=== PATIENT | female | born 1955 | race African-American/Black ===

== ENCOUNTER 2017-06-24 09:19 | Day surgery (SDC) | payer OTHER ==
--- NOTE | 2017-06-24 10:11 | HP ---
Satellite [facility] - Chief Complaint Chief Complaint: right hand pain/numbness - Past Medical History Allergies/Adverse Reactions: Allergies Allergy/AdvReac Type Severity Reaction Status Date / Time No Known Allergies Allergy Verified 11/01/14 11:30 Cardiovascular: Yes: HTN, Hyperlipdemia - Current Medications Current Medications: Home Medications Medication Instructions Recorded Acetaminophen [Tylenol] 650 mg PO PRN PRN 11/01/14 Amlodipine Besylate 10 mg PO DAILY 11/01/14 Atenolol [Tenormin -] 50 mg PO DAILY 11/01/14 Atorvastatin Calcium 40 mg PO DAILY 11/01/14 Cholecalciferol (Vitamin D3) 1,000 unit PO DAILY 11/01/14 [Vitamin D3] Hydrochlorothiazide [Hctz -] 12.5 mg PO DAILY 11/01/14 Ciprofloxacin [Cipro -] 250 mg PO BID #10 tablet 11/03/14 Hydrocodone/Acetaminophen [Placedo 1 each PO Q6H PRN #20 tablet MDD 4 06/24/17 5-325 Tablet] Satellite Physical Exam - Physical Examination Vital Signs: Vital Signs Period Temp Pulse Resp BP Sys/Koehler Pulse Ox Last 24 Hr 98.9 F 61 18 128/73 99 General Appearance: Well Nourished, Well Developed, Alert & Oriented x3 ENT: Clear Lung: Normal air movement Heart: Regular rate & rhythm Extremities: Other (right hand- + phalens, + tinels emg + cts) Neurological: Intact, Alert, Oriented Satellite Impression/Plan - Impression/Plan Impression: right cts Operative Procedure: right ctr Date to be Performed: 06/24/17
[2017-06-24 10:12] VITALS: BMI 35.5
[2017-06-24] MEDS ORDERED: MIDAZOLAM HCL 2 MG/2 ML SINGLE DOSE VIAL ONE ×2 (10:51→12:09)
[2017-06-24] MEDS ORDERED: PROPOFOL 20 ML ONE (10:51)
[2017-06-24] MEDS ORDERED: ceFAZolin SODIUM 1 GM VIAL ONE (10:53)
[2017-06-24] MEDS ORDERED: ONDANSETRON 4 MG/2 ML VIAL IVPUSH PRN (11:05)
[2017-06-24] MEDS ORDERED: oxyCODONE HCL 5 MG TABLET PO PRN ×2 (11:05)
[2017-06-24] MEDS ORDERED: LACTATED RINGERS SOLUTION 1,000 ML IV SCH (11:15)
[2017-06-24] MEDS ORDERED: ceFAZolin SODIUM 1 GM VIAL IVPB ONE (12:07)
[2017-06-24] MEDS ORDERED: VERAPAMIL HCL 5 MG/2 ML VIAL IVPUSH ONE (12:09)
[2017-06-24] MEDS ORDERED: LIDOCAINE HCL 1%, 10 MG/ML (20ML VIAL) NR ONE (12:25)
[2017-06-24] MEDS ORDERED: BUPIVACAINE HCL/PF (5 MG/ML) 30 ML VIAL IJ ONE (12:25)
[2017-06-24] MEDS ORDERED: oxyCODONE HCL 5 MG TABLET ONE (13:23)
[2017-06-24 13:32] VITALS: TEMP 98.2
[2017-06-24 14:22] VITALS: BP 127/64; PULSE 60
--- NOTE | 2017-06-24 14:58 | OP ---
Operative Note - Note: Operative Date: 06/24/17 Pre-Operative Diagnosis: left CTS Operation: left CTR, tenosynovium Post-Operative Diagnosis: Same as Pre-op Surgeon: Dipesh No Anesthesiologist/TRICOT KNITTING MACHINE OPERATOR: Dallas Gustafson Anesthesia: Local, MAC Specimens Removed: tenosynovium Estimated Blood Loss (mls): 0 Drains, Volume Out (mls): 0 Blood Volume Replaced (mls): 0 Fluid Volume Replaced (mls): 500 Operative Report Dictated: Yes
--- NOTE | 2017-06-24 15:33 | SPEC ---
DATE OF OPERATION: 06/24/2017 PREOPERATIVE DIAGNOSIS: Left carpal tunnel syndrome and tenosynovitis. POSTOPERATIVE DIAGNOSIS: Left carpal tunnel syndrome and tenosynovitis. PROCEDURE: Left carpal tunnel release and tenosynovectomy. SURGEON: Dipesh No MD ASSISTANTS: None. ANESTHESIOLOGIST: . SPECIMEN: Tenosynovium. BLOOD LOSS: None. BLOOD GIVEN: None. FLUID REPLACEMENT: 500 mL. DRAINS: None. COMPLICATIONS: None. INDICATIONS: The patient is a 62-year-old female with a preoperative diagnosis of severe recurrent left carpal tunnel syndrome. After understanding the potential risks, complications, alternatives and benefits for surgery versus nonsurgical treatment, the patient elected to undergo this procedure. DESCRIPTION OF PROCEDURE: The patient was brought to the operating room, peripheral IV placed and intravenous sedation was given. One gram of intravenous Ancef was given. MAC anesthesia was induced. A tourniquet was applied to the left upper arm and the left upper extremity was prepped and draped in sterile fashion. The entire case was done under 3.8 loupe magnification. A marking pen was utilized to vincent out a longitudinal incision in an already existing skin crease. Twenty mL of 0.5% Marcaine mixed with 1% Lidocaine was injected in and around the surgical incision. The left upper extremity was elevated, exsanguinated with an Esmarch bandage and the tourniquet inflated to 250 mmHg. A No. 15 scalpel blade was utilized to cut down through the skin. Subcutaneous hemostasis was achieved with the bipolar cautery. Dissection was done through the superficial palmar fascia. Self-retaining retractors were placed into the wound. Under direct visualization, the transverse carpal ligament was transected with a No. 15 scalpel blade, exposing the median nerve and the contents of the carpal tunnel. The distal and proximal extents of the release were completed with a Littler scissor and checked with irrigation and my small finger. They were seen to be complete. Limited dissection was done on the radial side of the median nerve and more extensive dissection was done on the ulnar side of the median nerve. The patients nerve was seen to be quite compressed by epineurium and therefore a limited epineurotomy was performed. A Ragnell retractor was used to gently retract the median nerve in a radial direction. The patient had a lot of tenosynovitis and therefore a tenosynovectomy was performed off all 9 flexor tendons. This was passed off the field as tenosynovium left wrist. The floor of the carpal tunnel was checked. There were no abnormal masses or ganglion cysts. The area was copiously irrigated and washed out and closure begun. Undyed 4-0 Vicryl was used to close the deep dermal layer. Final skin reapproximation was done with horizontal mattress 4-0 nylon sutures. The area was then washed and dried, covered with Xeroform, 4x4s, fluffs between the fingers, Webril and a 4-inch plaster roll was utilized to make a volar splint, which was then wrapped with Afsaneh and Coban. The tourniquet was taken down after a total tourniquet time of 18 minutes. There were no complications during the case. The patient tolerated the procedure well and was brought to the ambulatory recovery room in stable condition. Eliseo [id number]
--- NOTE | 2017-06-25 16:07 | PATH ---
Surgical Pathology Report Patient Name: CYNTHIA WALTON [facility]. Rec. #: [id number] /Age/Gender: 1955 (Age: 62) / F Account: [id number] Location: [facility] SURGICAL Taken: 06/24/2017 Received: 06/24/2017 Reported: 06/25/2017 Physicians: Dipesh No M.D. Specimen(s) Received TENOSYNOVIUM Clinical History Left carpal tunnel syndrome Final Diagnosis TENOSYNOVIUM, EXCISION: TENOSYNOVIAL TISSUE WITH FIBROSIS. Electronically Signed Alissa Pettit M.D. Gross Description Received in formalin labeled "tenosynovium," is a 2.0 x 1.9 x 0.3 cm aggregate of disla-yellow, irregular portions of soft tissue, consistent with tenosynovium. The specimen is entirely submitted in one cassette. /06/24/2017 saudi06/24/2017
== END 2017-06-24 14:29 | disposition home or self-care (01) ==
LOC: JASU-SURG 09:19
PROVIDERS: ATTEND Orthopaedic Surgery
PROC: 0LB60ZZ Excision of Left Lower Arm and Wrist Tendon, Open Approach (ICD-10-PCS; 2017-06-24)
PROC: 01N50ZZ Release Median Nerve, Open Approach (ICD-10-PCS; principal; 2017-06-24 11:00)
DX: G56.02 Carpal tunnel syndrome, left upper limb (principal); M65.842 Other synovitis and tenosynovitis, left hand; I10 Essential (primary) hypertension; E78.5 Hyperlipidemia, unspecified
CPT/HCPCS: 88304-TC; 94760

== ENCOUNTER 2017-08-05 09:19 | Day surgery (SDC) | payer OTHER ==
[2017-08-04 09:42] VITALS: BMI 35.0
--- NOTE | 2017-08-05 08:55 | HP ---
[facility] - Chief Complaint Chief Complaint: right hand pain/numbness - Past Medical History Allergies/Adverse Reactions: Allergies Allergy/AdvReac Type Severity Reaction Status Date / Time adhesive tape Allergy Severe Rash Verified 08/04/17 10:19 ekg leads glue Allergy "bumps on Uncoded 08/04/17 10:19 skin" Cardiovascular: Yes: HTN, Hyperlipdemia - Current Medications Current Medications: Home Medications Medication Instructions Recorded Amlodipine Besylate 10 mg PO DAILY 11/01/14 Atenolol [Tenormin -] 50 mg PO DAILY 11/01/14 Atorvastatin Calcium 40 mg PO DAILY 11/01/14 Cholecalciferol (Vitamin D3) 1,000 unit PO DAILY 11/01/14 [Vitamin D3] Hydrochlorothiazide [Hctz -] 12.5 mg PO DAILY 11/01/14 Naproxen Sod/Diphenhydramine 1 each PO PRN PRN 08/04/17 [Aleve Pm Caplet] Hydrocodone/Acetaminophen [Simpson 1 each PO Q6H PRN #20 tablet MDD 4 08/05/17 5-325 Tablet] Satellite Physical Exam - Physical Examination General Appearance: Well Nourished, Well Developed, Alert & Oriented x3 ENT: Clear Lung: Normal air movement Heart: Regular rate & rhythm Extremities: Other (right hand- + tinels, + phalens EMG + cts) Neurological: Intact, Alert, Oriented Satellite Impression/Plan - Impression/Plan Impression: right cts Operative Procedure: right ctr Date to be Performed: 08/05/17
[2017-08-05] MEDS ORDERED: BUPIVACAINE HCL/PF (5 MG/ML) 30 ML VIAL IJ ONE (10:13)
[2017-08-05] MEDS ORDERED: LIDOCAINE HCL 1%, 10 MG/ML (20ML VIAL) NR ONE (10:13)
[2017-08-05] MEDS ORDERED: MIDAZOLAM HCL 2 MG/2 ML SINGLE DOSE VIAL ONE (11:16)
--- NOTE | 2017-08-05 11:30 | OP ---
Operative Note - Note: Operative Date: 08/05/17 ([facility]) Pre-Operative Diagnosis: right cts Operation: right ctr Post-Operative Diagnosis: Same as Pre-op Surgeon: Dipesh No Anesthesiologist/CIRCUIT WALKER: Fabiano Palomino Anesthesia: Local, MAC Specimens Removed: tenosynovium Estimated Blood Loss (mls): 0 (tourniquet) Operative Report Dictated: Yes
[2017-08-05] MEDS ORDERED: oxyCODONE HCL 5 MG TABLET PO PRN (11:56)
[2017-08-05] MEDS ORDERED: ONDANSETRON 4 MG/2 ML VIAL IVPUSH PRN (11:56)
[2017-08-05] MEDS ORDERED: LACTATED RINGERS SOLUTION 1,000 ML IV SCH (12:00)
[2017-08-05] MEDS ORDERED: LIDOCAINE HCL 1%, 10 MG/ML (20ML VIAL) ONE (12:02)
[2017-08-05] MEDS ORDERED: BUPIVACAINE HCL/PF 0.5% (5MG/ML) 10 ML VIAL ONE (12:03)
[2017-08-05] MEDS ORDERED: PROPOFOL 20 ML ONE ×3 (12:23)
--- NOTE | 2017-08-05 13:27 | SPEC ---
DATE OF OPERATION: 08/05/2017 PREOPERATIVE DIAGNOSIS: Right carpal tunnel syndrome. POSTOPERATIVE DIAGNOSIS: Right carpal tunnel syndrome. OPERATION: Right carpal tunnel release and tenosynovectomy. SURGEON: Dipesh No M.D. ASSISTANTS: None. ANESTHESIA: MAC; 10 mL of 0.5% Marcaine and 1% lidocaine mix. ANESTHESIOLOGIST: , COOKER SYRUP DRAINS: None. COMPLICATIONS: None. SPECIMENS: Tenosynovium, right wrist. BLOOD LOSS: None. BLOOD GIVEN: None. FLUID REPLACEMENT: 500 mL. INDICATIONS: This patient is a 62-year-old female with a preoperative diagnosis of right carpal tunnel syndrome. After understanding the potential risks, complications, alternatives and benefits of surgery versus nonsurgical treatment, the patient elected to undergo this procedure. DESCRIPTION OF PROCEDURE: The patient was brought to the operating room, peripheral IV placed, and intravenous sedation was given. One gram of intravenous Ancef was given. MAC anesthesia was induced. A tourniquet was applied to the right upper arm and the right upper extremity was prepped and draped in sterile fashion. The entire case was done under 3.8-loupe magnification. A marking pen was utilized to vincent out a longitudinal incision in an already existing skin crease. Twenty mL of 0.5% Marcaine mixed with 1% lidocaine was injected in and around the surgical incision. The right upper extremity was elevated, exsanguinated with an Esmarch bandage, and the tourniquet inflated to 250 mmHg. A No. 15-scalpel blade was utilized to cut down through the skin. Subcutaneous hemostasis was achieved with the bipolar cautery. Dissection was done through the superficial palmar fascia. Self-retaining retractors were placed into the wound. Under direct visualization, the transverse carpal ligament was transected with a No. 15-scalpel blade, exposing the median nerve and the contents of the carpal tunnel. The distal and proximal extents of the release were completed with a Littler scissors and checked with irrigation and my small finger. They were seen to be complete. Limited dissection was done on the radial side of the median nerve and more extensive dissection was done on the ulnar side of the median nerve. The patients nerve was seen to be quite compressed by epineurium and therefore a limited epineurotomy was performed. A Ragnell retractor was used to gently retract the median nerve in a radial direction. The patient had a lot of tenosynovitis and therefore a tenosynovectomy was performed off all 9 flexor tendons. This was passed off the field as tenosynovium right wrist. The floor of the carpal tunnel was checked. There were no abnormal masses or ganglion cysts. The area was copiously irrigated and washed out and closure begun. Undyed 4-0 Vicryl was used to close the deep dermal layer. Final skin reapproximation was done with horizontal mattress 4-0 nylon sutures. The area was then washed and dried, covered with Xeroform, 4 x 4's, fluffs between the fingers, Webril and a 4-inch plaster roll was utilized to make a volar splint, which was then wrapped with Afsaneh and Coban. The tourniquet was taken down after a total tourniquet time of 22 minutes. There were no complications during the case. The patient tolerated the procedure well and was brought to the ambulatory recovery room in stable condition. Eliseo [id number]
[2017-08-05 14:03] VITALS: BP 115/67; PULSE 57
[2017-08-05 16:12] VITALS: TEMP 98.4
--- NOTE | 2017-08-07 17:27 | PATH ---
Surgical Pathology Report Patient Name: CYNTHIA WALTON [facility]. Rec. #: [id number] /Age/Gender: 1955 (Age: 62) / F Account: [id number] Location: [facility] SURGICAL Taken: 08/05/2017 Received: 08/05/2017 Reported: 08/07/2017 Physicians: Dipesh No M.D. Specimen(s) Received TENOSYNOVIAL TISSUE Clinical History Carpal tunnel syndrome right side Final Diagnosis TENOSYNOVIAL TISSUE RIGHT SIDE, BIOPSY: SYNOVIAL TISSUE AND FIBROCONNECTIVE TISSUE WITH FOCAL FIBROSIS. Electronically Signed Alissa Pettit M.D. Gross Description Received in formalin labeled "tenosynovial tissue right side," is a 1.4 x 1.3 x 0.3 cm aggregate of disla-yellow portions of soft tissue, consistent with tenosynovium. The specimen is entirely submitted in one cassette. 08/06/2017 saudi08/06/2017
== END 2017-08-05 14:12 | disposition home or self-care (01) ==
LOC: JASU-SURG 09:19
PROVIDERS: ATTEND Orthopaedic Surgery
PROC: 01N50ZZ Release Median Nerve, Open Approach (ICD-10-PCS; principal; 2017-08-05 11:00)
DX: G56.01 Carpal tunnel syndrome, right upper limb (principal)

== ENCOUNTER 2018-03-17 08:18 | Emergency (ER) | payer OTHER ==
[2018-03-17 08:30] VITALS: TEMP 98.7; BMI 34.1
--- NOTE | 2018-03-17 09:17 | PDOC ---
History of Present Illness - General History Source: Patient Exam Limitations: No Limitations - History of Present Illness Initial Comments: 03/17/18 09:47 The patient is a 62 year old female, with a significant past medical history of hypertension and hyperlipidemia, who presents to the emergency department with persistent cough, generalized weakness, fatigue, fevers, chills, diaphoresis, poor appetite and nonbloody diarrhea since starting a Z-Pack on 03/12/18 when she was clinically diagnosed by her PCP, Dr. Saini, with pneumonia. She states her cough is productive of clear, thick white sputum, however, states the amount of sputum has decreased since completing her Zpack yesterday. She states she had been experiencing lightheadedness and profuse sweating with light activity for most of January and February which has persisted until now. She reports becoming drenched in sweat with just transitioning positions. She states she had a fever of 105F on 03/12/18 when she was diagnosed with pneumonia and denies recording her temperatures since, however, reports chills now. She states she feels tired and feel as if she has not really improved after her Abx course. She denies recent sick contacts. The patient denies chest pain, headache and dizziness. The patient denies nausea , vomit, and constipation. The patient denies dysuria, frequency, urgency and hematuria. Allergies: NKDA Past surgical history: orthopedic surgeries Social history: everyday smoker, no smoking in past week PCP - Dr. Saini at [facility] <Henrietta Carlton - Last Filed: 03/17/18 09:47> <Candido Richard - Last Filed: 03/17/18 15:01> - General Chief Complaint: Respiratory Stated Complaint: WEAKNESS Time Seen by Provider: 03/17/18 09:17 Past History <Henrietta Carlton - Last Filed: 03/17/18 09:47> - Past Medical History Anemia: No Asthma: Yes ("years ago") Cancer: No Cardiac Disorders: No CVA: No COPD: No CHF: No Dementia: No Diabetes: No GI Disorders: No Disorders: No HTN: Yes Hypercholesterolemia: Yes Liver Disease: No Psychiatric Problems: No Seizures: No Thyroid Disease: No - Surgical History Abdominal Surgery: No Appendectomy: No Cardiac Surgery: No Cholecystectomy: No Lung Surgery: No Neurologic Surgery: No Orthopedic Surgery: Yes (BILAT KNEE REPLACEMENTS;RT ANKLE SX;LEFT FOOT SX;RT HIP REPLACEMENT) - Immunization History Immunization Up to Date: Yes - Suicide/Smoking/Psychosocial Hx Smoking History: Current every day smoker Have you smoked in the past 12 months: Yes Number of Cigarettes Smoked Daily: 20 Information on smoking cessation initiated: No 'Breaking Loose' booklet given: 08/05/17 Hx Alcohol Use: No Drug/Substance Use Hx: No Substance Use Type: Alcohol Hx Substance Use Treatment: No <Candido Richard - Last Filed: 03/17/18 15:01> - Past Medical History Allergies/Adverse Reactions: Allergies Allergy/AdvReac Type Severity Reaction Status Date / Time adhesive tape Allergy Severe Rash Verified 03/17/18 08:25 ekg leads glue Allergy "bumps on Uncoded 03/17/18 08:25 skin" Home Medications: Ambulatory Orders Amlodipine Besylate 10 mg PO DAILY 11/01/14 Atenolol [Tenormin -] 50 mg PO DAILY 11/01/14 Atorvastatin Calcium 40 mg PO DAILY 11/01/14 Cholecalciferol (Vitamin D3) [Vitamin D3] 1,000 unit PO DAILY 11/01/14 Hydrochlorothiazide [Hctz -] 12.5 mg PO DAILY 11/01/14 Hydrocodone/Acetaminophen [Vulcan 5-325 Tablet] 1 each PO Q6H PRN #20 tablet MDD 4 08/05/17 Albuterol Sulfate Inhaler - [Ventolin HFA Inhaler -] 1 - 2 inh PO Q4H #1 inhaler 03/17/18 predniSONE [Deltasone -] 60 mg PO DAILY #15 tablet 03/17/18 Review of Systems - Review of Systems Able to Perform ROS?: Yes Comments:: 03/17/18 09:49 CONSTITUTIONAL: (+) fever, chills, fatigue, decreased appetite EYES: No visual changes ENT: No ear pain, no sore throat CARDIOVASCULAR: (+) lightheaded, diaphoresis. No chest pain, no palpitations RESPIRATORY: (+) cough, SOB GI: (+) diarrhea. No abdominal pain, no nausea, no vomiting, no constipation, GENITOURINARY: No dysuria, no frequency, no hematuria MUSKULOSKELETAL: No backpain, no joint pain, no myalgias SKIN: No rash NEURO: No headache <Henrietta Carlton - Last Filed: 03/17/18 09:47> *Physical Exam - Vital Signs Last Vital Signs Temp Pulse Resp BP Pulse Ox 98.7 F 66 18 131/81 99 03/17/18 08:25 03/17/18 08:25 03/17/18 08:25 03/17/18 08:25 03/17/18 08:25 - Physical Exam Comments: 03/17/18 09:49 CONSTITUTIONAL: Well-appearing; well-nourished; in no apparent distress HEAD: Normocephalic; atraumatic EYES: PERRL; EOM intact ENMT: External appears normal; normal oropharynx NECK: Supple; non-tender; no cervical lymphadenopathy CARD: Normal S1, S2; no murmurs, rubs, or gallops RESP: (+) Diffuse inspiratory and expiratory wheezing. Normal chest excursion with respiration; no rhonchi, or rales ABD: Soft, non-distended; non-tender; no palpable organomegaly, no palpable hernias EXT: Normal ROM in all four extremities; non-tender to palpation; distal pulses intact SKIN: Warm, dry, no rash NEURO: No focal neurological deficiencies. <Henrietta Carlton - Last Filed: 03/17/18 09:47> - Vital Signs Last Vital Signs Temp Pulse Resp BP Pulse Ox 98.7 F 66 18 131/81 99 03/17/18 08:25 03/17/18 08:25 03/17/18 08:25 03/17/18 08:25 03/17/18 08:25 <Candido Richard - Last Filed: 03/17/18 15:01> Moderate Sedation - Procedure Monitoring Vital Signs: Procedure Monitoring Vital Signs Temperature 98.7 F 03/17/18 08:25 Pulse Rate 66 03/17/18 08:25 Respiratory Rate 18 03/17/18 08:25 Blood Pressure 131/81 03/17/18 08:25 O2 Sat by Pulse Oximetry (%) 99 03/17/18 08:25 <Henrietta Carlton - Last Filed: 03/17/18 09:47> - Procedure Monitoring Vital Signs: Procedure Monitoring Vital Signs Temperature 98.7 F 03/17/18 08:25 Pulse Rate 66 03/17/18 08:25 Respiratory Rate 18 03/17/18 08:25 Blood Pressure 131/81 03/17/18 08:25 O2 Sat by Pulse Oximetry (%) 99 03/17/18 08:25 <Candido Richard - Last Filed: 03/17/18 15:01> ED Treatment Course - LABORATORY CBC & Chemistry Diagram: 03/17/18 09:30 03/17/18 09:30 <Candido Richard - Last Filed: 03/17/18 15:01> Medical Decision Making - Medical Decision Making 03/17/18 11:57 62-year-old female with history of hypertension, history of prolonged smoking presents to the ER with persistent shortness of breath with productive cough which has not responded to treatment with by mouth Zithromax. Patient also complaining of dizziness and lightheadedness. In the ED, patient is awake and alert, nontoxic appearing, with oxygen saturation ranging between 90-95% depending on the patient's positioning. Diffuse wheezing was appreciated in all lung massey. Patient received continuous nebulizer therapy with Atrovent and albuterol. Chest x-ray reveals no evidence of cardiomegaly, flattened hemidiaphragms are identified as well as hyperaeration. CBC/CMP within normal limit. Elevated sodium bicarbonate is noted. I suspect acute COPD exacerbation. We'll administer prednisone by mouth as well as additional nebulizers. Will reassess. 03/17/18 14:59 Patient ate a meal. Lung evaluation reveals no adventitious sounds. Patient able to ambulate without becoming dyspneic. Oxygen saturation post exertion is noted to be 96% on room air. Will discharge. <Candido Richard - Last Filed: 03/17/18 15:01> *DC/Admit/Observation/Transfer - Attestations Scribe Attestion: 03/17/18 09:50 Documentation prepared by Henrietta Carlton, acting as medical auditor for Candido Richard MD <Henrietta Carlton - Last Filed: 03/17/18 09:47> <Candido Richard - Last Filed: 03/17/18 15:01> Diagnosis at time of Disposition: Acute exacerbation of chronic obstructive pulmonary disease (COPD) - Discharge Dispostion Disposition: HOME Condition at time of disposition: Stable - Referrals Referrals: Adama Saini MD [Primary Care Provider] - - Patient Instructions Printed Discharge Instructions: DI for Acute Bronchitis - Post Discharge Activity
[2018-03-17] MEDS ORDERED: ALBUTEROL SO4 2.5/IPRATROPIUM 0.5 INH SOL 3 ML VIAL.NEB. NEB ONE ×4 (09:41→12:09)
[2018-03-17 10:29] LABS: INR 1.07 (0.83-1.09); PROTHROMBIN TIME (PATIENT) 12.6 SEC (9.7-13.0)
[2018-03-17 10:33] LABS: URINE APPEARANCE SLCLOUDY; URINE BILIRUBIN NEGATIVE (<2.0 mg/dL); URINE COLOR DKYELLOW; URINE GLUCOSE (UA) NEGATIVE (NEGATIVE); URINE KETONE TRACE (NEGATIVE); URINE LEUK ESTERASE TRACE (NEGATIVE); URINE NITRITE NEGATIVE (NEGATIVE); URINE PROTEIN 1+ (NEGATIVE)
[2018-03-17 10:42] LABS: BASO % 0.3 % (0-2.0); HEMATOCRIT 37.3 % (32.4-45.2); HEMOGLOBIN 12.8 GM/dL (10.7-15.3); LYMPH % 45.9 % (8-40); MCH 30.2 pg (25.7-33.7); MCHC 34.3 g/dl (32.0-36.0); MEAN CELL VOLUME 87.8 fl (80-96); MEAN PLT VOLUME 9.1 fl (7.5-11.1); MONO % 8.7 % (3.8-10.2); NEUT % 43.1 % (42.8-82.8); PLATELET COUNT 275 K/MM3 (134-434); RBC 4.25 M/mm3 (3.60-5.2); RDW 16.6 % (11.6-15.6); WHITE BLOOD COUNT 6.2 K/mm3 (4.0-10.0)
[2018-03-17 10:49] LABS: EPI CELLS MODERATE /HPF (FEW); URINE HYALINE CAST 27 /lpf; URINE MUCUS FEW
[2018-03-17 10:53] LABS: ALBUMIN 4.2 g/dl (3.4-5.0); ALK PHOS 81 U/L (45-117); ANION GAP 7 MMOL/L (8-16); BILIRUBIN,TOTAL 0.7 mg/dL (0.2-1); BLOOD UREA NITROGEN 16 mg/dL (7-18); CALCIUM 9.4 mg/dL (8.5-10.1); CHLORIDE 100 mmol/L (98-107); CO2 34 mmol/L (21-32); CREATININE 1.1 mg/dL (0.55-1.3); GLUCOSE,RANDOM 101 mg/dL (74-106); POTASSIUM 3.4 mmol/L (3.5-5.1); SGOT/AST 21 U/L (15-37); SGPT/ALT 23 U/L (13-61); SODIUM 140 mmol/L (136-145); TOT PROT 7.9 g/dl (6.4-8.2)
[2018-03-17] MEDS ORDERED: predniSONE 20 MG TABLET (UD) PO ONE (11:52)
[2018-03-17] MEDS ORDERED: predniSONE 20 MG TABLET (UD) ONE (12:09)
[2018-03-17 12:19] VITALS: BP 117/65; PULSE 80
--- NOTE | 2018-03-17 15:31 | EKG ---
Test Reason : Blood Pressure : / mmHG Vent. Rate : 057 BPM Atrial Rate : 057 BPM P-R Int : 214 ms QRS Dur : 072 ms QT Int : 434 ms P-R-T Axes : 081 063 053 degrees QTc Int : 422 ms POOR DATA QUALITY, INTERPRETATION MAY BE ADVERSELY AFFECTED SINUS BRADYCARDIA WITH 1ST DEGREE A-V BLOCK JUNCTIONAL ST DEPRESSION, PROBABLY ABNORMAL ABNORMAL ECG WHEN COMPARED WITH ECG OF 01-NOV-2014 12:51, NON-SPECIFIC CHANGE IN ST SEGMENT IN ANTERIOR LEADS Confirmed by MELIDA ZAMBRANO, MIKE ([id number]) on 03/17/2018 3:31:12 PM Referred By: Confirmed By:MIKE MONTEZ MD
== END 2018-03-17 15:24 | disposition home or self-care (01) ==
LOC: JER 08:18
PROC: 3E0F7GC Introduction of Other Therapeutic Substance into Respiratory Tract, Via Natural or Artificial Opening (ICD-10-PCS; principal; 2018-03-17)
DX: J44.1 Chronic obstructive pulmonary disease with (acute) exacerbation (principal); I10 Essential (primary) hypertension; E78.00 Pure hypercholesterolemia, unspecified
CPT/HCPCS: 36415; 71046-TC-FY; 80053; 81003; 81015; 82550; 82553; 84484; 85025; 85610; 87804; 93005; 93010; 94640; 99282-25

== ENCOUNTER 2022-11-06 07:59 | Day surgery (SDC) | payer OTHER ==
[2022-11-06] MEDS ORDERED: PALONOSETRON HCL 0.25 MG/5 ML VIAL IVPUSH ONE (10:00)
[2022-11-06] MEDS ORDERED: GRANISETRON HCL/PF 1 MG in SODIUM CHLORIDE 50 ML IVPB ONE (10:00)
[2022-11-06] MEDS ORDERED: SODIUM CHLORIDE 0.9% IV ONE (10:30)
[2022-11-06] MEDS ORDERED: ETOPOSIDE IV ONE (10:30)
[2022-11-06 14:34] VITALS: BP 107/63; PULSE 78; RESP 18; TEMP 98.6
== END 2022-11-06 11:40 | disposition home or self-care (01) ==
LOC: JONCCHEMO 07:59 → J7W 07:59 → JONCCHEMO 11:40
PROVIDERS: ATTEND Internal Medicine Hematology & Oncology
DX: Z51.11 Encounter for antineoplastic chemotherapy (principal); C34.90 Malignant neoplasm of unspecified part of unspecified bronchus or lung
CPT/HCPCS: 96375; 96413; J2469

== ENCOUNTER 2022-11-07 08:03 | Day surgery (SDC) | payer OTHER ==
[2022-11-07] MEDS ORDERED: PEGFILGRASTIM-CBQV (UDENYCA) 6 MG/0.6 ML SYRINGE SQ ONE (09:00)
[2022-11-07 11:54] VITALS: BP 108/59; PULSE 75; RESP 18; TEMP 98.6
== END 2022-11-07 10:10 | disposition home or self-care (01) ==
LOC: JONCCHEMO 08:03 → J7W 08:03 → JONCCHEMO 10:10
PROVIDERS: ATTEND Internal Medicine Hematology & Oncology
PROC: 3E013GC Introduction of Other Therapeutic Substance into Subcutaneous Tissue, Percutaneous Approach (ICD-10-PCS; principal; 2022-11-07)
DX: C34.90 Malignant neoplasm of unspecified part of unspecified bronchus or lung (principal); Z76.89 Persons encountering health services in other specified circumstances
CPT/HCPCS: 96372; Q5111

== ENCOUNTER 2022-12-02 08:19 | Day surgery (SDC) | payer OTHER ==
[2022-12-02 08:37] LABS: BASO % 0.9 % (0-2.0); EOS % 0.3 % (0-4.5); HEMATOCRIT 29.9 % (32.4-45.2); LYMPH % 23.4 % (8-40); MCH 29.4 pg (25.7-33.7); MCHC 33.6 g/dl (32.0-36.0); MEAN CELL VOLUME 87.7 fl (80-96); MEAN PLT VOLUME 7.1 fl (7.5-11.1); MONO % 12.1 % (3.8-10.2); NEUT % 63.3 % (42.8-82.8); PLATELET COUNT 605 10^3/uL (134-434); RBC 3.41 M/mm3 (3.60-5.2); RDW 17.3 % (11.6-15.6)
[2022-12-02 08:47] LABS: POTASSIUM 4.3 mmol/L (3.5-5.1)
[2022-12-02 08:49] LABS: CALCIUM 9.1 mg/dL (8.5-10.1)
[2022-12-02 08:50] LABS: ALBUMIN 3.4 g/dl (3.4-5.0)
[2022-12-02 08:52] LABS: BILIRUBIN,DIRECT 0.1 mg/dL (0.0-0.2)
[2022-12-02 08:53] LABS: CREATININE 1.1 mg/dL (0.55-1.3)
[2022-12-02 08:54] LABS: BILIRUBIN,TOTAL 0.3 mg/dL (0.2-1)
[2022-12-02] MEDS ORDERED: FOSAPREPITANT DIMEGLUMINE 150 MG in SODIUM CHLORIDE 145 ML IVPB ONE (09:30)
[2022-12-02] MEDS ORDERED: GRANISETRON HCL/PF 1 MG in SODIUM CHLORIDE 50 ML IVPB ONE (09:30)
[2022-12-02] MEDS ORDERED: ATEZOLIZUMAB 1,200 MG in SODIUM CHLORIDE 250 ML IV ONE (10:00)
[2022-12-02] MEDS ORDERED: ETOPOSIDE 160 MG in SODIUM CHLORIDE 0.9% 500 ML IV ONE (10:30)
[2022-12-02] MEDS ORDERED: SODIUM CHLORIDE 0.9% IV ONE (10:30)
[2022-12-02] MEDS ORDERED: ETOPOSIDE IV ONE (10:30)
[2022-12-02 16:10] VITALS: BP 103/54; PULSE 80; RESP 20; TEMP 98.8
== END 2022-12-02 14:15 | disposition home or self-care (01) ==
LOC: JONCCHEMO 08:19 → J7W 08:19 → JONCCHEMO 14:15
PROVIDERS: ATTEND Internal Medicine Hematology & Oncology
DX: Z51.11 Encounter for antineoplastic chemotherapy (principal); C34.90 Malignant neoplasm of unspecified part of unspecified bronchus or lung
CPT/HCPCS: 36415; 80048; 80076; 84439; 84443; 85025; 96367; 96375; 96413; 96417; J1453; J9022

== ENCOUNTER 2022-12-04 08:07 | Day surgery (SDC) | payer OTHER ==
[2022-12-04] MEDS ORDERED: PALONOSETRON HCL 0.25 MG/5 ML VIAL IVPUSH ONE (09:30)
[2022-12-04 09:38] VITALS: BP 100/61; PULSE 77; RESP 20; TEMP 98.9
[2022-12-04] MEDS ORDERED: ETOPOSIDE 160 MG in SODIUM CHLORIDE 0.9% 500 ML IV ONE (10:00)
== END 2022-12-04 10:45 | disposition home or self-care (01) ==
LOC: JONCCHEMO 08:07 → J7W 08:08 → JONCCHEMO 10:45
PROVIDERS: ATTEND Internal Medicine Hematology & Oncology
DX: Z51.11 Encounter for antineoplastic chemotherapy (principal); C34.91 Malignant neoplasm of unspecified part of right bronchus or lung
CPT/HCPCS: 96375; 96413; J2469

== ENCOUNTER 2022-12-05 08:10 | Day surgery (SDC) | payer OTHER ==
[2022-12-05] MEDS ORDERED: PEGFILGRASTIM-CBQV (UDENYCA) 6 MG/0.6 ML SYRINGE SQ ONE (09:00)
[2022-12-05 15:38] VITALS: BP 101/64; PULSE 76; RESP 18; TEMP 98.7
== END 2022-12-05 09:45 | disposition home or self-care (01) ==
LOC: JONCCHEMO 08:10 → J7W 08:11 → JONCCHEMO 09:45
PROVIDERS: ATTEND Internal Medicine Hematology & Oncology
PROC: 3E013GC Introduction of Other Therapeutic Substance into Subcutaneous Tissue, Percutaneous Approach (ICD-10-PCS; principal; 2022-12-05)
DX: C34.91 Malignant neoplasm of unspecified part of right bronchus or lung (principal); Z76.89 Persons encountering health services in other specified circumstances
CPT/HCPCS: 96372; Q5111

== ENCOUNTER 2022-12-23 03:53 | Day surgery (SDC) | payer OTHER ==
[2022-12-22 09:40] VITALS: BMI 29.0
[2022-12-23 08:46] LABS: INR 1.1 (0.83-1.09); PROTHROMBIN TIME (PATIENT) 12.8 SEC (9.7-13.0)
[2022-12-23 08:50] LABS: BASO % 0.4 % (0-2.0); EOS % 0.6 % (0-4.5); HEMATOCRIT 27.8 % (32.4-45.2); HEMOGLOBIN 9.4 GM/dL (10.7-15.3); LYMPH % 22.1 % (8-40); MCH 29.4 pg (25.7-33.7); MCHC 33.6 g/dl (32.0-36.0); MEAN CELL VOLUME 87.5 fl (80-96); MEAN PLT VOLUME 7.1 fl (7.5-11.1); MONO % 9.2 % (3.8-10.2); NEUT % 67.7 % (42.8-82.8); PLATELET COUNT 489 10^3/uL (134-434); RBC 3.18 M/mm3 (3.60-5.2); RDW 20.4 % (11.6-15.6); WHITE BLOOD COUNT 11.2 K/mm3 (4.0-10.0)
[2022-12-23 09:06] LABS: ALBUMIN 3.5 g/dl (3.4-5.0)
[2022-12-23 09:08] LABS: POTASSIUM 3.9 mmol/L (3.5-5.1)
[2022-12-23 09:09] LABS: BILIRUBIN,DIRECT 0.1 mg/dL (0.0-0.2)
[2022-12-23 09:10] LABS: ALBUMIN 3.5 g/dl (3.4-5.0); CALCIUM 9.6 mg/dL (8.5-10.1)
[2022-12-23 09:11] LABS: BILIRUBIN,TOTAL 0.4 mg/dL (0.2-1); BLOOD UREA NITROGEN 8.6 mg/dL (7-18)
[2022-12-23 09:13] LABS: CREATININE 1.1 mg/dL (0.55-1.3)
[2022-12-23 09:15] LABS: BILIRUBIN,TOTAL 0.4 mg/dL (0.2-1); TOT PROT 7.1 g/dl (6.4-8.2)
[2022-12-23] MEDS ORDERED: LIDOCAINE 1%/EPI 1:100000 (20 ML MULTI DOSE VIAL) ONE (11:32)
[2022-12-23] MEDS ORDERED: MIDAZOLAM HCL 2 MG/2 ML SINGLE DOSE VIAL ONE (11:32)
[2022-12-23] MEDS ORDERED: FENTANYL CITRATE/PF 50 MCG/ML VIAL ONE (11:32)
[2022-12-23] MEDS ORDERED: FENTANYL CITRATE/PF 50 MCG/ML VIAL IVPUSH ONE (11:40)
[2022-12-23] MEDS ORDERED: MIDAZOLAM HCL 2 MG/2 ML SINGLE DOSE VIAL IVPUSH ONE (11:40)
[2022-12-23 13:38] VITALS: RESP 20; TEMP 97.8
[2022-12-23 13:49] VITALS: BP 120/60; PULSE 81
== END 2022-12-23 13:00 | disposition home or self-care (01) ==
LOC: JRADIR 03:53
PROVIDERS: ATTEND Internal Medicine Hematology & Oncology
PROC: 0JH63WZ Insertion of Totally Implantable Vascular Access Device into Chest Subcutaneous Tissue and Fascia, Percutaneous Approach (ICD-10-PCS; principal; 2022-12-23)
PROC: 02HV33Z Insertion of Infusion Device into Superior Vena Cava, Percutaneous Approach (ICD-10-PCS; 2022-12-23)
PROC: B518ZZA Fluoroscopy of Superior Vena Cava, Guidance (ICD-10-PCS; 2022-12-23)
DX: C34.91 Malignant neoplasm of unspecified part of right bronchus or lung (principal)
CPT/HCPCS: 36561; C1788; 36415; 77001-TC-FY; 80053; 80076; 84439; 84443; 85025; 85610

== ENCOUNTER 2022-12-23 13:20 | Day surgery (SDC) | payer OTHER ==
[~2022-12-23 13:20] MED LIST: ATEZOLIZUMAB 1,200 MG in SODIUM CHLORIDE 250 ML IV ONE; ETOPOSIDE IV ONE; FOSAPREPITANT DIMEGLUMINE 150 MG in SODIUM CHLORIDE 145 ML IVPB ONE; GRANISETRON HCL/PF 1 MG in SODIUM CHLORIDE 50 ML IVPB ONE; SODIUM CHLORIDE IV ONE
[2022-12-23 16:19] VITALS: RESP 18; TEMP 98.5
[2022-12-23] MEDS ORDERED: PORTA CATH FLUSH 10 ML IVPUSH PRN (16:19)
[2022-12-23 17:06] VITALS: BP 106/53; PULSE 80
== END 2022-12-23 16:40 | disposition home or self-care (01) ==
LOC: JONCCHEMO 13:20 → J7W 13:20 → JONCCHEMO 13:52
PROVIDERS: ATTEND Internal Medicine Hematology & Oncology
DX: Z51.11 Encounter for antineoplastic chemotherapy (principal); C34.91 Malignant neoplasm of unspecified part of right bronchus or lung
CPT/HCPCS: 96367; 96375; 96413; 96417; J1453; J9022

== ENCOUNTER 2022-12-24 08:21 | Day surgery (SDC) | payer OTHER ==
[2022-12-24] MEDS ORDERED: GRANISETRON HCL/PF 1 MG in SODIUM CHLORIDE 50 ML IVPB ONE (09:30)
[2022-12-24] MEDS ORDERED: SODIUM CHLORIDE IV ONE (10:00)
[2022-12-24] MEDS ORDERED: ETOPOSIDE IV ONE (10:00)
[2022-12-24 14:25] VITALS: BP 94/60; PULSE 75; RESP 18; TEMP 98.7
[2022-12-24] MEDS ORDERED: PORTA CATH FLUSH 10 ML IVPUSH PRN (14:25)
== END 2022-12-24 10:20 | disposition home or self-care (01) ==
LOC: JONCCHEMO 08:21 → J7W 08:22 → JONCCHEMO 10:20
PROVIDERS: ATTEND Internal Medicine Hematology & Oncology
DX: Z51.11 Encounter for antineoplastic chemotherapy (principal); C34.91 Malignant neoplasm of unspecified part of right bronchus or lung
CPT/HCPCS: 96375; 96413

== ENCOUNTER 2022-12-25 07:56 | Day surgery (SDC) | payer OTHER ==
[2022-12-25] MEDS ORDERED: PALONOSETRON HCL 0.25 MG/5 ML VIAL IVPUSH ONE (08:30)
[2022-12-25] MEDS ORDERED: SODIUM CHLORIDE IV ONE (09:00)
[2022-12-25] MEDS ORDERED: ETOPOSIDE IV ONE (09:00)
[2022-12-25 09:55] VITALS: BP 95/57; PULSE 75; RESP 18; TEMP 98.9
[2022-12-25] MEDS ORDERED: PORTA CATH FLUSH 10 ML IVPUSH PRN (13:07)
== END 2022-12-25 10:35 | disposition home or self-care (01) ==
LOC: JONCCHEMO 07:56 → J7W 07:57 → JONCCHEMO 10:35
PROVIDERS: ATTEND Internal Medicine Hematology & Oncology
DX: Z51.11 Encounter for antineoplastic chemotherapy (principal); C34.91 Malignant neoplasm of unspecified part of right bronchus or lung
CPT/HCPCS: 96375; 96413; J2469

== ENCOUNTER 2022-12-26 08:20 | Day surgery (SDC) | payer OTHER ==
[2022-12-26] MEDS: PEGFILGRASTIM-CBQV (UDENYCA) 6 MG/0.6 ML SYRINGE SQ ONE ×2 (08:20→08:54)
[2022-12-26 09:00] VITALS: BP 100/56; PULSE 80; RESP 20; TEMP 98.8
[2022-12-26] MEDS ORDERED: PEGFILGRASTIM-CBQV (UDENYCA) 6 MG/0.6 ML SYRINGE SQ ONE (10:00)
== END 2022-12-26 09:00 | disposition home or self-care (01) ==
LOC: JONCCHEMO 08:20 → J7W 08:20 → JONCCHEMO 09:00
PROVIDERS: ATTEND Internal Medicine Hematology & Oncology
PROC: 3E013GC Introduction of Other Therapeutic Substance into Subcutaneous Tissue, Percutaneous Approach (ICD-10-PCS; principal; 2022-12-26)
DX: C34.91 Malignant neoplasm of unspecified part of right bronchus or lung (principal); Z76.89 Persons encountering health services in other specified circumstances
CPT/HCPCS: 96372; Q5111

== ENCOUNTER 2023-01-13 07:44 | Day surgery (SDC) | payer OTHER ==
[2023-01-13 08:17] LABS: BASO % 0.6 % (0-2.0); EOS % 0.7 % (0-4.5); HEMATOCRIT 28.3 % (32.4-45.2); HEMOGLOBIN 9.5 GM/dL (10.7-15.3); LYMPH % 20.5 % (8-40); MCH 30.5 pg (25.7-33.7); MCHC 33.5 g/dl (32.0-36.0); MEAN PLT VOLUME 6.6 fl (7.5-11.1); MONO % 9.3 % (3.8-10.2); NEUT % 68.9 % (42.8-82.8); PLATELET COUNT 405 10^3/uL (134-434); RBC 3.11 M/mm3 (3.60-5.2); RDW 23.8 % (11.6-15.6); WHITE BLOOD COUNT 10.7 K/mm3 (4.0-10.0)
[2023-01-13 08:40] LABS: POTASSIUM 3.2 mmol/L (3.5-5.1)
[2023-01-13 08:42] LABS: BLOOD UREA NITROGEN 7.2 mg/dL (7-18); CALCIUM 9.3 mg/dL (8.5-10.1)
[2023-01-13 08:43] LABS: ALBUMIN 3.6 g/dl (3.4-5.0)
[2023-01-13 08:45] LABS: BILIRUBIN,DIRECT 0.2 mg/dL (0.0-0.2); CREATININE 1.2 mg/dL (0.55-1.3)
[2023-01-13 08:47] LABS: BILIRUBIN,TOTAL 0.4 mg/dL (0.2-1); TOT PROT 7.2 g/dl (6.4-8.2)
[2023-01-13] MEDS ORDERED: POTASSIUM CHLORIDE TABS 20 MEQ TABLET.ER (FP) PO ONE (09:30)
[2023-01-13 09:38] LABS: ANISOCYTOSIS 1+; MACROCYTOSIS 1+
[2023-01-13] MEDS ORDERED: GRANISETRON HCL/PF 1 MG in SODIUM CHLORIDE 50 ML IVPB ONE (10:00)
[2023-01-13] MEDS ORDERED: FOSAPREPITANT DIMEGLUMINE 150 MG in SODIUM CHLORIDE 145 ML IVPB ONE (10:00)
[2023-01-13] MEDS ORDERED: ATEZOLIZUMAB 1,200 MG in SODIUM CHLORIDE 250 ML IV ONE (10:30)
[2023-01-13] MEDS ORDERED: SODIUM CHLORIDE 0.9% IV ONE (11:30)
[2023-01-13] MEDS ORDERED: ETOPOSIDE IV ONE (11:30)
[2023-01-13] MEDS ORDERED: ACETAMINOPHEN 500 MG TABLET (FP) PO ONE (14:00)
[2023-01-13 14:53] VITALS: TEMP 98.1
[2023-01-13 15:02] VITALS: BP 114/69; PULSE 70; RESP 18
[2023-01-13] MEDS ORDERED: PORTA CATH FLUSH 10 ML IVPUSH PRN (15:02)
== END 2023-01-13 14:35 | disposition home or self-care (01) ==
LOC: JONCCHEMO 07:44 → J7W 07:55 → JONCCHEMO 14:35
PROVIDERS: ATTEND Internal Medicine Hematology & Oncology
DX: Z51.11 Encounter for antineoplastic chemotherapy (principal); C34.91 Malignant neoplasm of unspecified part of right bronchus or lung
CPT/HCPCS: 36415; 80048; 80076; 84439; 84443; 85025; 96375; 96413; J1453; J9022; J9181

== ENCOUNTER 2023-01-14 08:06 | Day surgery (SDC) | payer OTHER ==
[2023-01-14] MEDS ORDERED: GRANISETRON HCL/PF 1 MG in SODIUM CHLORIDE 50 ML IVPB ONE (10:00)
[2023-01-14] MEDS ORDERED: SODIUM CHLORIDE 0.9% IV ONE (10:30)
[2023-01-14] MEDS ORDERED: ETOPOSIDE IV ONE (10:30)
[2023-01-14 15:33] VITALS: BP 113/69; PULSE 74; RESP 20; TEMP 98.6
[2023-01-14] MEDS ORDERED: PORTA CATH FLUSH 10 ML IVPUSH PRN (15:33)
== END 2023-01-14 11:00 | disposition home or self-care (01) ==
LOC: JONCCHEMO 08:06 → J7W 08:09 → JONCCHEMO 11:00
PROVIDERS: ATTEND Internal Medicine Hematology & Oncology
DX: Z51.11 Encounter for antineoplastic chemotherapy (principal); C34.91 Malignant neoplasm of unspecified part of right bronchus or lung
CPT/HCPCS: 96375; 96413

== ENCOUNTER 2023-01-15 12:18 | Day surgery (SDC) | payer OTHER ==
[~2023-01-15 12:18] MED LIST changes: -ATEZOLIZUMAB 1,200 MG in SODIUM CHLORIDE 250 ML IV ONE; -FOSAPREPITANT DIMEGLUMINE 150 MG in SODIUM CHLORIDE 145 ML IVPB ONE; -GRANISETRON HCL/PF 1 MG in SODIUM CHLORIDE 50 ML IVPB ONE; +PALONOSETRON HCL 0.25 MG/5 ML VIAL IVPUSH ONE; +SODIUM CHLORIDE 0.9% IV ONE; -SODIUM CHLORIDE IV ONE
[2023-01-15 14:25] VITALS: BP 95/63; PULSE 77; RESP 18; TEMP 97.9
[2023-01-15] MEDS ORDERED: PORTA CATH FLUSH 10 ML IVPUSH PRN (14:25)
== END 2023-01-15 13:55 | disposition home or self-care (01) ==
LOC: JONCCHEMO 12:18 → J7W 12:19 → JONCCHEMO 13:55
PROVIDERS: ATTEND Internal Medicine Hematology & Oncology
DX: Z51.11 Encounter for antineoplastic chemotherapy (principal); C34.91 Malignant neoplasm of unspecified part of right bronchus or lung
CPT/HCPCS: 96372; 96375; 96413; J2469

== ENCOUNTER 2023-01-16 08:16 | Day surgery (SDC) | payer OTHER ==
[2023-01-16] MEDS ORDERED: PEGFILGRASTIM-CBQV (UDENYCA) 6 MG/0.6 ML SYRINGE SQ ONE (10:00)
[2023-01-16 16:06] VITALS: BP 97/57; PULSE 72; RESP 18; TEMP 99
== END 2023-01-16 14:40 | disposition home or self-care (01) ==
LOC: JONCCHEMO 08:16 → J7W 08:17 → JONCCHEMO 14:40
PROVIDERS: ATTEND Internal Medicine Hematology & Oncology
PROC: 3E013GC Introduction of Other Therapeutic Substance into Subcutaneous Tissue, Percutaneous Approach (ICD-10-PCS; principal; 2023-01-16)
DX: C34.91 Malignant neoplasm of unspecified part of right bronchus or lung (principal); Z76.89 Persons encountering health services in other specified circumstances
CPT/HCPCS: 96372; Q5111

== ENCOUNTER 2023-02-03 07:57 | Day surgery (SDC) | payer OTHER ==
[2023-02-03 08:43] LABS: BASO % 0.9 % (0-2.0); EOS % 0.4 % (0-4.5); HEMATOCRIT 25.2 % (32.4-45.2); HEMOGLOBIN 8.3 GM/dL (10.7-15.3); LYMPH % 13.2 % (8-40); MCH 31.4 pg (25.7-33.7); MCHC 32.8 g/dl (32.0-36.0); MEAN CELL VOLUME 95.6 fl (80-96); MEAN PLT VOLUME 7.1 fl (7.5-11.1); MONO % 8.4 % (3.8-10.2); NEUT % 77.1 % (42.8-82.8); PLATELET COUNT 324 10^3/uL (134-434); RBC 2.63 M/mm3 (3.60-5.2)
[2023-02-03 09:06] LABS: POTASSIUM 3.6 mmol/L (3.5-5.1)
[2023-02-03 09:08] LABS: ALBUMIN 3.1 g/dl (3.4-5.0); BLOOD UREA NITROGEN 7.1 mg/dL (7-18); CALCIUM 9.4 mg/dL (8.5-10.1)
[2023-02-03 09:12] LABS: BILIRUBIN,DIRECT 0.2 mg/dL (0.0-0.2); CREATININE 0.9 mg/dL (0.55-1.3)
[2023-02-03 09:14] LABS: BILIRUBIN,TOTAL 0.5 mg/dL (0.2-1); TOT PROT 6.8 g/dl (6.4-8.2)
[2023-02-03] MEDS ORDERED: ATEZOLIZUMAB 1,200 MG in SODIUM CHLORIDE 250 ML IV ONE (10:00)
[2023-02-03 11:28] LABS: ANISOCYTOSIS 2+; MACROCYTOSIS 2+; TARGET CELLS 1+
[2023-02-03] MEDS ORDERED: ONDANSETRON 4 MG/2 ML VIAL IVPB STA (11:40)
[2023-02-03] MEDS ORDERED: PORTA CATH FLUSH 10 ML IVPUSH PRN (14:11)
[2023-02-03 16:12] VITALS: BP 102/65; PULSE 80; RESP 18; TEMP 98.6
== END 2023-02-03 12:45 | disposition home or self-care (01) ==
LOC: J7W 07:57 → JONCCHEMO 07:57
PROVIDERS: ATTEND Internal Medicine Hematology & Oncology
DX: Z51.11 Encounter for antineoplastic chemotherapy (principal); C34.91 Malignant neoplasm of unspecified part of right bronchus or lung
CPT/HCPCS: 36415; 80048; 80076; 84439; 84443; 85025; 96375; 96413; J9022

== ENCOUNTER 2023-03-17 08:08 | Day surgery (SDC) | payer OTHER ==
[2023-03-17 09:00] LABS: EOS % 1.4 % (0-4.5); HEMATOCRIT 32.4 % (32.4-45.2); HEMOGLOBIN 10.8 GM/dL (10.7-15.3); LYMPH % 25.4 % (8-40); MCH 31.3 pg (25.7-33.7); MCHC 33.3 g/dl (32.0-36.0); MEAN PLT VOLUME 7.2 fl (7.5-11.1); MONO % 7.1 % (3.8-10.2); NEUT % 65.1 % (42.8-82.8); PLATELET COUNT 340 10^3/uL (134-434); RBC 3.45 M/mm3 (3.60-5.2); RDW 18.5 % (11.6-15.6); WHITE BLOOD COUNT 7.7 K/mm3 (4.0-10.0)
[2023-03-17 09:13] LABS: POTASSIUM 3.7 mmol/L (3.5-5.1)
[2023-03-17 09:15] LABS: CALCIUM 8.8 mg/dL (8.5-10.1)
[2023-03-17 09:16] LABS: ALBUMIN 3.7 g/dl (3.4-5.0); BLOOD UREA NITROGEN 14.2 mg/dL (7-18)
[2023-03-17 09:19] LABS: BILIRUBIN,DIRECT 0.2 mg/dL (0.0-0.2); CREATININE 0.8 mg/dL (0.55-1.3)
[2023-03-17 09:20] LABS: BILIRUBIN,TOTAL 0.4 mg/dL (0.2-1); TOT PROT 7.2 g/dl (6.4-8.2)
[2023-03-17] MEDS: ONDANSETRON INJECTION 8 MG in SODIUM CHLORIDE 50 ML IVPB ONE (09:36)
[2023-03-17] MEDS: ATEZOLIZUMAB 1,200 MG in SODIUM CHLORIDE 250 ML IV ONE (10:06)
[2023-03-17] MEDS: PORTA CATH FLUSH 10 ML IVPUSH PRN (10:45)
[2023-03-17 14:12] VITALS: RESP 20; TEMP 98.8
[2023-03-17 14:19] VITALS: BP 159/86; PULSE 68
== END 2023-03-17 10:55 | disposition home or self-care (01) ==
LOC: JONCCHEMO 08:08 → J7W 08:11 → JONCCHEMO 10:55
PROVIDERS: ATTEND Internal Medicine Hematology & Oncology
DX: Z51.11 Encounter for antineoplastic chemotherapy (principal); C34.91 Malignant neoplasm of unspecified part of right bronchus or lung
CPT/HCPCS: 36415; 80048; 80076; 84439; 84443; 85025; 96375; 96413; J9022

== ENCOUNTER 2023-11-09 11:54 | Inpatient (IN) | payer OTHER ==
[2023-11-09] MEDS ORDERED: ACETAMINOPHEN 325 MG TABLET (FP) ONE (12:50)
[2023-11-09] MEDS ORDERED: MECLIZINE HCL 25 MG TABLET (FP) ONE (12:50)
[2023-11-09] MEDS: MECLIZINE HCL 25 MG TABLET (FP) PO ONE (12:53)
[2023-11-09] MEDS: ACETAMINOPHEN 325 MG TABLET (FP) PO ONE (12:53)
[2023-11-09 13:29] LABS: HEMATOCRIT 38.1 % (32.4-45.2); HEMOGLOBIN 12.5 G/dL (10.7-15.3); MCH 30.1 pg (25.7-33.7); MCHC 32.9 g/dl (32.0-36.0); MEAN CELL VOLUME 91.4 fl (80-96); MEAN PLT VOLUME 7.1 fl (7.5-11.1); PLATELET COUNT 219.7 10^3/uL (134-434); RBC 4.17 10^6/uL (3.60-5.2); RDW 16.1 % (11.6-15.6); WHITE BLOOD COUNT 3.6 10^3/uL (4.0-10.8)
[2023-11-09 13:30] LABS: ALBUMIN 4.7 g/dl (3.4-5.0); ALK PHOS 113 U/L (45-117); ANION GAP 10 mmol/L (4-13); BILIRUBIN,TOTAL 0.7 mg/dl (0.2-1); CALCIUM 9.9 mg/dl (8.5-10.1); CHLORIDE 80 mmol/L (98-107); CO2 26 mmol/L (21-32); CREATININE 1.1 mg/dl (0.6-1.3); GLUCOSE,RANDOM 99 mg/dl (74-106); SGOT/AST 24 U/L (15-37); SGPT/ALT 16 U/L (7-52); TOT PROT 7.4 g/dl (6.4-8.2)
[2023-11-09 13:40] LABS: SODIUM 116 mmol/L (136-145)
[2023-11-09 14:28] LABS: PLATELET ESTIMATE ADEQUATE
[2023-11-09 14:55] LABS: HIV INTERPRETATION NEGATIVE (NEGATIVE)
[2023-11-09 16:21] LABS: MAGNESIUM 1.7 mg/dL (1.8-2.4)
[2023-11-09 16:24] LABS: PHOSPHOROUS 3.9 mg/dL (2.5-4.9)
[2023-11-09] MEDS: ENOXAPARIN NA (PORCINE) 40 MG/0.4 ML DISP.SYRIN SQ SCH (16:40)
[2023-11-09] MEDS: SODIUM CHLORIDE 0.9% 500 ML INFUS.BAG IV ONE (16:46)
[2023-11-09] MEDS: MUPIROCIN 2% TOPICAL OINTMENT FOR DECOLONIZATION NS SCH (22:31)
[2023-11-09] MEDS: CHLORHEXIDINE GLUCONATE 4% CLEANSER FOR DECOLONIZATION TP SCH (22:31)
[2023-11-09 23:23] LABS: POTASSIUM 3.6 mmol/L (3.5-5.1)
[2023-11-09 23:24] LABS: CALCIUM 8.9 mg/dL (8.5-10.1)
[2023-11-09 23:25] LABS: BLOOD UREA NITROGEN 12.2 mg/dL (7-18)
[2023-11-09 23:28] LABS: CREATININE 0.8 mg/dL (0.55-1.3)
[2023-11-09 23:33] LABS: MAGNESIUM 1.5 mg/dL (1.8-2.4)
[2023-11-09 23:37] LABS: PHOSPHOROUS 2.8 mg/dL (2.5-4.9)
[2023-11-10 03:14] LABS: HEMATOCRIT 31.4 % (32.4-45.2); HEMOGLOBIN 10.9 GM/dL (10.7-15.3); MCH 30.4 pg (25.7-33.7); MCHC 34.7 g/dl (32.0-36.0); MEAN CELL VOLUME 87.6 fl (80-96); MEAN PLT VOLUME 6.2 fl (7.5-11.1); PLATELET COUNT 232 10^3/uL (134-434); RBC 3.59 M/mm3 (3.60-5.2); RDW 15.6 % (11.6-15.6); WHITE BLOOD COUNT 3.8 K/mm3 (4.0-10.0)
[2023-11-10 03:21] LABS: INR 1.1 (0.83-1.09); PROTHROMBIN TIME (PATIENT) 12.6 SEC (9.7-13.0)
[2023-11-10 03:38] LABS: POTASSIUM 3.4 mmol/L (3.5-5.1)
[2023-11-10 03:40] LABS: ALBUMIN 3.7 g/dl (3.4-5.0); CALCIUM 8.8 mg/dL (8.5-10.1)
[2023-11-10 03:41] LABS: BLOOD UREA NITROGEN 9.9 mg/dL (7-18); MAGNESIUM 1.6 mg/dL (1.8-2.4)
[2023-11-10 03:44] LABS: CREATININE 0.8 mg/dL (0.55-1.3); PHOSPHOROUS 2.9 mg/dL (2.5-4.9)
[2023-11-10 03:45] LABS: BILIRUBIN,TOTAL 0.6 mg/dL (0.2-1); TOT PROT 6.6 g/dl (6.4-8.2)
[2023-11-10] MEDS: ERGOCALCIFEROL 8,000 UNITS/ML DROPSBTL PO SCH (06:36)
[2023-11-10] MEDS: ATENOLOL 50 MG TABLET (FP) PO SCH (06:36)
[2023-11-10] MEDS: MAGNESIUM 2GM/50ML STERILE WATER IVPB IVPB ONE (08:21)
[2023-11-10] MEDS: POTASSIUM CHLORIDE ORAL LIQUID 20 MEQ/15 ML PO ONE (08:21)
[2023-11-10 09:59] LABS: BASO % 1.1 % (0-2.0); HEMATOCRIT 31.3 % (32.4-45.2); HEMOGLOBIN 10.7 GM/dL (10.7-15.3); LYMPH % 25.3 % (8-40); MCH 30.3 pg (25.7-33.7); MCHC 34.2 g/dl (32.0-36.0); MEAN CELL VOLUME 88.5 fl (80-96); MONO % 12.6 % (3.8-10.2); PLATELET COUNT 238 10^3/uL (134-434); RBC 3.53 M/mm3 (3.60-5.2); RDW 15.2 % (11.6-15.6); WHITE BLOOD COUNT 3.5 K/mm3 (4.0-10.0)
[2023-11-10] MEDS ORDERED: MUPIROCIN 2% TOPICAL OINTMENT FOR DECOLONIZATION NS SCH (10:00)
[2023-11-10 10:14] LABS: POTASSIUM 3.5 mmol/L (3.5-5.1)
[2023-11-10 10:18] LABS: ALBUMIN 3.6 g/dl (3.4-5.0); BLOOD UREA NITROGEN 8.8 mg/dL (7-18); MAGNESIUM 1.7 mg/dL (1.8-2.4)
[2023-11-10 10:21] LABS: CREATININE 0.7 mg/dL (0.55-1.3)
[2023-11-10 10:23] LABS: BILIRUBIN,TOTAL 0.8 mg/dL (0.2-1); TOT PROT 6.5 g/dl (6.4-8.2)
[2023-11-10] MEDS: SODIUM CHLORIDE 1,000 ML IV SCH (13:49)
[2023-11-10] MEDS: LORazepam 2 MG/ML SDV VIAL IVPUSH ONE (15:32)
[2023-11-10 17:35] LABS: POTASSIUM 3.9 mmol/L (3.5-5.1)
[2023-11-10 17:37] LABS: BLOOD UREA NITROGEN 11.7 mg/dL (7-18); CALCIUM 9.1 mg/dL (8.5-10.1)
[2023-11-10 17:41] LABS: CREATININE 0.8 mg/dL (0.55-1.3)
[2023-11-10] MEDS: ATORVASTATIN CA 40 MG TABLET (FP) PO SCH (21:09)
[2023-11-10] MEDS ORDERED: CHLORHEXIDINE GLUCONATE 4% CLEANSER FOR DECOLONIZATION TP SCH (22:00)
[2023-11-10] MEDS: DEXMEDETOMIDINE PREMIX 400 MCG/100 ML BAG IVPB SCH (22:31)
[2023-11-11 01:11] LABS: POTASSIUM 3.3 mmol/L (3.5-5.1)
[2023-11-11 01:12] LABS: CALCIUM 8.5 mg/dL (8.5-10.1)
[2023-11-11 01:13] LABS: ALBUMIN 3.6 g/dl (3.4-5.0); MAGNESIUM 1.8 mg/dL (1.8-2.4)
[2023-11-11 01:16] LABS: PHOSPHOROUS 2.8 mg/dL (2.5-4.9)
[2023-11-11 01:17] LABS: CREATININE 0.6 mg/dL (0.55-1.3)
[2023-11-11 01:18] LABS: BILIRUBIN,TOTAL 0.7 mg/dL (0.2-1); TOT PROT 6.3 g/dl (6.4-8.2)
[2023-11-11] MEDS: KCL 10 MEQ IVPB 10 MEQ/100 ML INFUS.BAG IVPB SCH (01:22)
[2023-11-11 06:41] LABS: BASO % 1.5 % (0-2.0); EOS % 2.3 % (0-4.5); HEMATOCRIT 33.6 % (32.4-45.2); HEMOGLOBIN 11.5 GM/dL (10.7-15.3); LYMPH % 26.4 % (8-40); MCH 30.2 pg (25.7-33.7); MCHC 34.2 g/dl (32.0-36.0); MEAN CELL VOLUME 88.5 fl (80-96); MEAN PLT VOLUME 7.1 fl (7.5-11.1); MONO % 14.8 % (3.8-10.2); PLATELET COUNT 247 10^3/uL (134-434); WHITE BLOOD COUNT 3.6 K/mm3 (4.0-10.0)
[2023-11-11 06:58] LABS: POTASSIUM 4.5 mmol/L (3.5-5.1)
[2023-11-11 07:01] LABS: ALBUMIN 3.8 g/dl (3.4-5.0); CALCIUM 9.1 mg/dL (8.5-10.1)
[2023-11-11 07:02] LABS: MAGNESIUM 1.8 mg/dL (1.8-2.4)
[2023-11-11 07:04] LABS: CREATININE 0.6 mg/dL (0.55-1.3)
[2023-11-11 07:05] LABS: BILIRUBIN,TOTAL 0.7 mg/dL (0.2-1); PHOSPHOROUS 2.8 mg/dL (2.5-4.9)
[2023-11-11 07:06] LABS: TOT PROT 6.6 g/dl (6.4-8.2)
[2023-11-11] MEDS: MAGNESIUM 2GM/50ML STERILE WATER IVPB IVPB ONE (09:00)
[2023-11-11] MEDS: SODIUM CHLORIDE 1 GM TABLET PO SCH (17:19)
[2023-11-11] MEDS: ACETAMINOPHEN 325 MG TABLET (FP) PO ONE (18:35)
[2023-11-11] MEDS: SODIUM CHLORIDE 1,000 ML IV SCH (18:36)
[2023-11-12 08:43] LABS: BASO % 0.8 % (0-2.0); EOS % 2.1 % (0-4.5); HEMATOCRIT 34.4 % (32.4-45.2); HEMOGLOBIN 11.7 GM/dL (10.7-15.3); LYMPH % 23.7 % (8-40); MCH 29.9 pg (25.7-33.7); MCHC 34.1 g/dl (32.0-36.0); MEAN CELL VOLUME 87.7 fl (80-96); MEAN PLT VOLUME 7.3 fl (7.5-11.1); MONO % 14.2 % (3.8-10.2); NEUT % 59.2 % (42.8-82.8); PLATELET COUNT 259 10^3/uL (134-434); RBC 3.92 M/mm3 (3.60-5.2); RDW 15.8 % (11.6-15.6); WHITE BLOOD COUNT 4.1 K/mm3 (4.0-10.0)
[2023-11-12 08:50] LABS: POTASSIUM 4.3 mmol/L (3.5-5.1)
[2023-11-12 09:00] LABS: ALBUMIN 3.5 g/dl (3.4-5.0); BLOOD UREA NITROGEN 12.1 mg/dL (7-18); CALCIUM 8.9 mg/dL (8.5-10.1)
[2023-11-12 09:04] LABS: CREATININE 0.7 mg/dL (0.55-1.3); PHOSPHOROUS 3.1 mg/dL (2.5-4.9)
[2023-11-12 09:05] LABS: BILIRUBIN,TOTAL 0.7 mg/dL (0.2-1); TOT PROT 6.3 g/dl (6.4-8.2)
[2023-11-12] MEDS: CHOLECALCIFEROL (VIT D3) 1,000 UNIT (25 MCG) TABLET PO SCH (10:57)
[2023-11-12] MEDS: ACETAMINOPHEN 325 MG TABLET (FP) PO PRN (21:13)
[2023-11-13 07:59] LABS: POTASSIUM 4.1 mmol/L (3.5-5.1)
[2023-11-13 08:03] LABS: CALCIUM 9.2 mg/dL (8.5-10.1)
[2023-11-13 08:07] LABS: CREATININE 0.6 mg/dL (0.55-1.3)
[2023-11-13 13:29] VITALS: BMI 27.8
[2023-11-13] MEDS: CARBAMIDE PEROXIDE 6.5% OTIC 15 ML BOTTLE AU SCH (14:25)
[2023-11-13] MEDS: SODIUM CHLORIDE 1 GM TABLET PO SCH (14:27)
[2023-11-13] MEDS: FUROSEMIDE 20 MG TABLET (FP) PO ONE (14:27)
[2023-11-13] MEDS: hydrALAZINE HCL 20 MG/ML VIAL IVPUSH ONE (14:31)
[2023-11-13] MEDS: ATORVASTATIN CA 40 MG TABLET (FP) PO SCH (21:41)
[2023-11-13] MEDS ORDERED: MUPIROCIN 2% TOPICAL OINTMENT FOR DECOLONIZATION NS SCH (22:00)
[2023-11-13] MEDS ORDERED: CHLORHEXIDINE GLUCONATE 4% CLEANSER FOR DECOLONIZATION TP SCH (22:00)
[2023-11-14] MEDS: ATENOLOL 50 MG TABLET (FP) PO SCH (05:19)
[2023-11-14] MEDS: ENOXAPARIN NA (PORCINE) 40 MG/0.4 ML DISP.SYRIN SQ SCH (09:37)
[2023-11-14 11:44] LABS: POTASSIUM 3.8 mmol/L (3.5-5.1)
[2023-11-14 11:47] LABS: BLOOD UREA NITROGEN 13.1 mg/dL (7-18); CALCIUM 9.1 mg/dL (8.5-10.1)
[2023-11-14 11:50] LABS: CREATININE 0.8 mg/dL (0.55-1.3)
[2023-11-16] MEDS: ATENOLOL 25 MG TABLET (FP) PO SCH (05:54)
[2023-11-16 10:08] LABS: POTASSIUM 3.6 mmol/L (3.5-5.1)
[2023-11-16 10:13] LABS: CALCIUM 9.4 mg/dL (8.5-10.1)
[2023-11-16 10:14] LABS: BLOOD UREA NITROGEN 12.6 mg/dL (7-18)
[2023-11-16 10:17] LABS: CREATININE 0.8 mg/dL (0.55-1.3)
[2023-11-16 14:07] VITALS: BP 112/71; PULSE 78; RESP 18; TEMP 98.8
== END 2023-11-16 17:05 | disposition home or self-care (01) | DRG 644 ==
LOC: FER 11:54 → JICU 21:40 → J6S 11-13 11:41
PROVIDERS: ADMIT Internal Medicine Pulmonary Disease; ATTEND Internal Medicine
DX: E22.2 Syndrome of inappropriate secretion of antidiuretic hormone (principal); C34.31 Malignant neoplasm of lower lobe, right bronchus or lung; I12.9 Hypertensive chronic kidney disease with stage 1 through stage 4 chronic kidney disease, or unspecified chronic kidney disease; N18.9 Chronic kidney disease, unspecified; J44.9 Chronic obstructive pulmonary disease, unspecified; E83.42 Hypomagnesemia; H92.01 Otalgia, right ear; E78.5 Hyperlipidemia, unspecified; Z96.641 Presence of right artificial hip joint
CPT/HCPCS: 0241U-QW; 36415; 70450-TC; 71045-TC-FY; 71250-TC; 72125-TC; 80048; 80053; 81003; 82436; 82533; 82570; 82962; 83735; 83930; 83935; 84100; 84133; 84300; 84484; 84540; 85025; 85027; 85610; 86803; 87389; 93005; 97116-GP; 97162-GP; 99285-25

== ENCOUNTER 2024-03-25 09:38 | Day surgery (SDC) | payer OTHER ==
[2024-03-25] MEDS: SODIUM CHLORIDE 250 ML IV ONE (10:05)
[2024-03-25 10:32] LABS: BASO % 0.7 % (0-2.0); EOS % 1.8 % (0-4.5); HEMATOCRIT 28.9 % (32.4-45.2); LYMPH % 15.7 % (8-40); MCH 29.7 pg (25.7-33.7); MCHC 34.4 g/dl (32.0-36.0); MEAN CELL VOLUME 86.3 fl (80-96); MEAN PLT VOLUME 7.3 fl (7.5-11.1); MONO % 8.2 % (3.8-10.2); NEUT % 73.6 % (42.8-82.8); PLATELET COUNT 286 10^3/uL (134-434); RBC 3.35 M/mm3 (3.60-5.2); WHITE BLOOD COUNT 4.4 K/mm3 (4.0-10.0)
[2024-03-25 11:04] LABS: POTASSIUM 3.7 mmol/L (3.5-5.1)
[2024-03-25 11:05] LABS: CALCIUM 9.2 mg/dL (8.5-10.1)
[2024-03-25 11:06] LABS: ALBUMIN 3.4 g/dl (3.4-5.0); BLOOD UREA NITROGEN 11.2 mg/dL (7-18)
[2024-03-25 11:09] LABS: BILIRUBIN,DIRECT 0.2 mg/dL (0.0-0.2); CREATININE 0.7 mg/dL (0.55-1.3)
[2024-03-25 11:10] LABS: BILIRUBIN,TOTAL 0.6 mg/dL (0.2-1)
[2024-03-25 11:11] LABS: TOT PROT 6.6 g/dl (6.4-8.2)
[2024-03-25] MEDS: PALONOSETRON HCL 0.25 MG/5 ML VIAL IVPUSH ONE (11:48)
[2024-03-25] MEDS: DEXAMETHASONE SODIUM PHOSPHATE 10 MG in SODIUM CHLORIDE 50 ML IVPB ONE (11:50)
[2024-03-25] MEDS: LURBINECTEDIN IV ONE (12:19)
[2024-03-25] MEDS: SODIUM CHLORIDE IV ONE (12:19)
[2024-03-25] MEDS: PORTA CATH FLUSH 10 ML IVPUSH PRN (13:00)
[2024-03-25 13:24] VITALS: PULSE 88; TEMP 98.8
[2024-03-25 13:31] VITALS: BP 126/87; RESP 16
== END 2024-03-25 13:15 | disposition home or self-care (01) ==
LOC: JONCCHEMO 09:38 → J7W 09:40 → JONCCHEMO 13:15
PROVIDERS: ATTEND Internal Medicine Hematology & Oncology
DX: Z51.11 Encounter for antineoplastic chemotherapy (principal); C34.90 Malignant neoplasm of unspecified part of unspecified bronchus or lung
CPT/HCPCS: 36415; 80048; 80076; 85025; 96375; 96413; J9223

== ENCOUNTER 2024-04-15 09:43 | Day surgery (SDC) | payer OTHER ==
[2024-04-15] MEDS ORDERED: LURBINECTEDIN IV ONE (10:15)
[2024-04-15] MEDS ORDERED: SODIUM CHLORIDE IV ONE (10:15)
[2024-04-15 11:02] LABS: BASO % 1.8 % (0-2.0); EOS % 1.4 % (0-4.5); HEMATOCRIT 29.5 % (32.4-45.2); HEMOGLOBIN 9.7 GM/dL (10.7-15.3); MCH 28.8 pg (25.7-33.7); MEAN CELL VOLUME 87.2 fl (80-96); MEAN PLT VOLUME 7.3 fl (7.5-11.1); MONO % 18.1 % (3.8-10.2); NEUT % 55.7 % (42.8-82.8); PLATELET COUNT 349 10^3/uL (134-434); RBC 3.38 M/mm3 (3.60-5.2); RDW 19.2 % (11.6-15.6); WHITE BLOOD COUNT 4.3 K/mm3 (4.0-10.0)
[2024-04-15] MEDS: SODIUM CHLORIDE 250 ML IV ONE (11:17)
[2024-04-15 11:52] LABS: ALBUMIN 3.7 g/dl (3.4-5.0); BLOOD UREA NITROGEN 5.4 mg/dL (7-18); CALCIUM 9.3 mg/dL (8.5-10.1)
[2024-04-15 11:55] LABS: BILIRUBIN,DIRECT 0.1 mg/dL (0.0-0.2); BILIRUBIN,TOTAL 0.4 mg/dL (0.2-1); CREATININE 0.7 mg/dL (0.55-1.3); TOT PROT 7.6 g/dl (6.4-8.2)
[2024-04-15] MEDS: PALONOSETRON HCL 0.25 MG/5 ML VIAL IVPUSH ONE (12:25)
[2024-04-15] MEDS: DEXAMETHASONE SODIUM PHOSPHATE 10 MG in SODIUM CHLORIDE 50 ML IVPB ONE (12:27)
[2024-04-15] MEDS: SODIUM CHLORIDE IV ONE (13:12)
[2024-04-15] MEDS: LURBINECTEDIN IV ONE (13:12)
[2024-04-15] MEDS: POTASSIUM CHLORIDE TABS 20 MEQ TABLET.ER (FP) PO ONE (13:16)
[2024-04-15] MEDS: KCL 10 MEQ IVPB 10 MEQ/100 ML INFUS.BAG IVPB SCH (14:22)
[2024-04-15 14:28] VITALS: BP 114/75; PULSE 115; RESP 20; TEMP 98.5
[2024-04-15] MEDS: PORTA CATH FLUSH 10 ML IVPUSH PRN (15:48)
== END 2024-04-15 15:54 | disposition home or self-care (01) ==
LOC: JONCCHEMO 09:43
PROVIDERS: ATTEND Internal Medicine Hematology & Oncology
PROC: 3E04305 Introduction of Other Antineoplastic into Central Vein, Percutaneous Approach (ICD-10-PCS; principal; 2024-04-15)
PROC: 3E0437Z Introduction of Electrolytic and Water Balance Substance into Central Vein, Percutaneous Approach (ICD-10-PCS; 2024-04-15)
PROC: 3E0437Z Introduction of Electrolytic and Water Balance Substance into Central Vein, Percutaneous Approach (ICD-10-PCS; 2024-04-15)
PROC: 3E043GC Introduction of Other Therapeutic Substance into Central Vein, Percutaneous Approach (ICD-10-PCS; 2024-04-15)
DX: Z51.11 Encounter for antineoplastic chemotherapy (principal); C34.2 Malignant neoplasm of middle lobe, bronchus or lung
CPT/HCPCS: 36415; 80048; 80076; 85025; 96361; 96366; 96374; 96375; 96413; J9223

== ENCOUNTER 2024-05-06 09:23 | Day surgery (SDC) | payer OTHER ==
[2024-05-06] MEDS: SODIUM CHLORIDE 250 ML IV ONE (10:30)
[2024-05-06] MEDS: PALONOSETRON HCL 0.25 MG/5 ML VIAL IVPUSH ONE (11:05)
[2024-05-06] MEDS: DEXAMETHASONE SODIUM PHOSPHATE 10 MG in SODIUM CHLORIDE 50 ML IVPB ONE ×2 (11:10)
[2024-05-06] MEDS: SODIUM CHLORIDE IV ONE (11:56)
[2024-05-06] MEDS: LURBINECTEDIN IV ONE (11:56)
[2024-05-06] MEDS ORDERED: PORTA CATH FLUSH 10 ML IVPUSH PRN (15:54)
[2024-05-06 15:55] VITALS: BP 131/83; PULSE 116; RESP 20; TEMP 98.4
== END 2024-05-06 13:30 | disposition home or self-care (01) ==
LOC: JONCCHEMO 09:23
PROVIDERS: ATTEND Internal Medicine Hematology & Oncology
DX: Z51.11 Encounter for antineoplastic chemotherapy (principal); C34.2 Malignant neoplasm of middle lobe, bronchus or lung
CPT/HCPCS: 96375; 96413; J9223

== ENCOUNTER 2024-07-01 11:50 | Emergency (ER) | payer OTHER ==
[2024-07-01 12:36] VITALS: TEMP 98.6; BMI 24.3
[2024-07-01] MEDS: SODIUM CHLORIDE 0.9% 500 ML INFUS.BAG IV ONE (13:30)
[2024-07-01] MEDS ORDERED: METOCLOPRAMIDE HCL INJECTION 10 MG/2 ML VIAL ONE (13:31)
[2024-07-01] MEDS: METOCLOPRAMIDE HCL INJECTION 10 MG/2 ML VIAL IVPB ONE (13:31)
[2024-07-01 13:37] LABS: ABSOLUTE IMMATURE GRANULOCYTES 0.01 x10^3/uL (0.0-0.031); BASOPHILS # 0.03 x10^3/uL (0.01-0.08); EOSINOPHIL % 3.9 % (0.7-5.8); EOSINOPHILS # 0.15 x10^3/uL (0.04-0.36); HEMATOCRIT 29.5 % (34.1-44.9); HEMOGLOBIN 9.9 g/dL (11.2-15.7); MCHC 33.6 g/dl (32.2-35.5); MEAN CELL VOLUME 93.7 fl (79.4-94.8); MEAN PLT VOLUME 9.1 fl (9.4-12.3); MONOCYTE # 0.19 x10^3/uL (0.24-0.86); MONOCYTE % 4.9 % (4.7-12.5); PLATELET COUNT 231 x10^3/uL (182-369); RDW 18.4 % (12.4-16.4)
[2024-07-01 14:28] LABS: BLOOD UREA NITROGEN 13.5 mg/dL (7-18); CALCIUM 9.1 mg/dL (8.5-10.1)
[2024-07-01 14:29] LABS: ALBUMIN 3.5 g/dl (3.4-5.0)
[2024-07-01 14:30] LABS: POTASSIUM 4.3 mmol/L (3.5-5.1)
[2024-07-01 14:35] LABS: BILIRUBIN,TOTAL 0.2 mg/dL (0.2-1); CREATININE 0.7 mg/dL (0.55-1.3); TOT PROT 6.5 g/dl (6.4-8.2)
[2024-07-01 14:50] LABS: URINE APPEARANCE CLEAR; URINE BILIRUBIN NEGATIVE (NEGATIVE); URINE COLOR YELLOW; URINE GLUCOSE (UA) NEGATIVE (NEGATIVE); URINE KETONE NEGATIVE (NEGATIVE); URINE LEUK ESTERASE NEGATIVE (NEGATIVE); URINE NITRITE NEGATIVE (NEGATIVE); URINE PROTEIN NEGATIVE (NEGATIVE); URINE UROBILINOGEN 0.2 mg/dL (0.2-1.0)
[2024-07-01 17:05] VITALS: BP 139/87; PULSE 100; RESP 16
== END 2024-07-01 18:20 | disposition home or self-care (01) ==
LOC: JER 11:50
PROC: 3E033GC Introduction of Other Therapeutic Substance into Peripheral Vein, Percutaneous Approach (ICD-10-PCS; principal; 2024-07-01)
DX: R51.9 Headache, unspecified (principal); N13.4 Hydroureter; R35.0 Frequency of micturition; R10.2 Pelvic and perineal pain; R05.9 Cough, unspecified
CPT/HCPCS: 36415; 70450-TC; 71045-TC-FY; 74177-TC; 80053; 81003; 83605; 83690; 85025; 87086; 93005; 93010; 99285-25

== ENCOUNTER 2024-09-22 12:10 | Inpatient (IN) | payer OTHER ==
[2024-09-22] MEDS ORDERED: ACETAMINOPHEN 325 MG TABLET (FP) PO PRN ×2 (15:26→15:45)
[2024-09-22] MEDS ORDERED: FUROSEMIDE 20 MG TABLET (FP) PO ONE (16:08)
[2024-09-22 17:54] VITALS: BMI 26.2
[2024-09-22] MEDS: SODIUM CHLORIDE 1 GM TABLET PO SCH (18:21)
[2024-09-22] MEDS: FUROSEMIDE 20 MG TABLET (FP) PO ONE (18:28)
[2024-09-22] MEDS: SODIUM CHLORIDE 1 GM TABLET PO ONE (18:34)
[2024-09-22 22:29] VITALS: RESP 18
[2024-09-23 00:38] LABS: HCV DIAGNOSTIC IN-HOUSE W/RFLX NON-REACTIVE (NONREACTIVE)
[2024-09-23 00:39] LABS: HIV INTERPRETATION NEGATIVE (NEGATIVE)
[2024-09-23 07:37] LABS: MCHC 34.6 g/dl (32.2-35.5); MEAN CELL VOLUME 92.4 fl (79.4-94.8); MEAN PLT VOLUME 8.6 fl (9.4-12.3); RDW 17.5 % (12.4-16.4)
[2024-09-23 07:59] LABS: GLUCOSE,RANDOM 84.0 mg/dL (74-106); TOT PROT 6.6 g/dl (6.4-8.2)
[2024-09-23 08:00] LABS: CO2 25.0 mmol/L (21-32)
[2024-09-23 08:02] LABS: ALK PHOS 96.0 U/L (40-150)
[2024-09-23 08:04] LABS: SGOT/AST 21.0 U/L (5-34); SGPT/ALT 12.0 U/L (0-55)
[2024-09-23 08:05] LABS: CREATININE 0.69 mg/dL (0.55-1.3)
[2024-09-23] MEDS: ENOXAPARIN NA (PORCINE) 40 MG/0.4 ML DISP.SYRIN SQ SCH (10:01)
[2024-09-23] MEDS: SOLIFENACIN SUCCINATE 5 MG TAB PO SCH (10:02)
[2024-09-23] MEDS: CHOLECALCIFEROL (VIT D3) 1,000 UNIT (25 MCG) TABLET PO SCH (10:02)
[2024-09-23 14:05] VITALS: BP 106/73; PULSE 101; TEMP 98.1
== END 2024-09-23 13:55 | disposition home or self-care (01) | DRG 644 ==
LOC: JER 12:10 → JERBED 13:30 → J7W 16:42
PROVIDERS: ADMIT Student in an Organized Health Care Education/Training Program; ATTEND Student in an Organized Health Care Education/Training Program
DX: E22.2 Syndrome of inappropriate secretion of antidiuretic hormone (principal); C34.90 Malignant neoplasm of unspecified part of unspecified bronchus or lung; F17.210 Nicotine dependence, cigarettes, uncomplicated; E78.5 Hyperlipidemia, unspecified; I10 Essential (primary) hypertension; Z96.653 Presence of artificial knee joint, bilateral; Z96.641 Presence of right artificial hip joint
CPT/HCPCS: 36415; 80048; 80053; 80076; 83735; 84100; 85025; 85027; 86803; 87389; 93005; 93010; 96360; 97116-GP; 97161-GP; 99285-25

== ENCOUNTER 2024-10-28 13:08 | Inpatient (IN) | payer OTHER ==
[2024-10-28 14:29] LABS: ABSOLUTE IMMATURE GRANULOCYTES 0.01 x10^3/uL (0.0-0.031); BASOPHILS # 0.01 x10^3/uL (0.01-0.08); EOSINOPHIL % 2.3 % (0.7-5.8); EOSINOPHILS # 0.07 x10^3/uL (0.04-0.36); MCHC 35.3 g/dl (32.2-35.5); MEAN CELL VOLUME 91.5 fl (79.4-94.8); MEAN PLT VOLUME 9.3 fl (9.4-12.3); MONOCYTE # 0.41 x10^3/uL (0.24-0.86); MONOCYTE % 13.2 % (4.7-12.5); RDW 15.2 % (12.4-16.4)
[2024-10-28 14:54] LABS: GLUCOSE,RANDOM 84 mg/dL (74-106); TOT PROT 7.8 g/dl (6.4-8.2)
[2024-10-28 14:55] LABS: CO2 22 mmol/L (21-32)
[2024-10-28 14:57] LABS: ALK PHOS 91 U/L (40-150)
[2024-10-28 14:59] LABS: SGPT/ALT 15 U/L (0-55)
[2024-10-28 15:00] LABS: CREATININE 0.57 mg/dL (0.55-1.3); SGOT/AST 50 U/L (5-34)
[2024-10-28] MEDS: SODIUM CHLORIDE 3% 500 ML/500 ML INFUS.BAG IV SCH (17:06)
[2024-10-28] MEDS: ACETAMINOPHEN 325 MG TABLET (FP) PO PRN (19:15)
[2024-10-28] MEDS ORDERED: ACETAMINOPHEN 325 MG TABLET (FP) ONE (19:40)
[2024-10-28] MEDS: ALBUTEROL SO4 2.5/IPRATROPIUM 0.5 INH SOL 3 ML VIAL.NEB. NEB SCH (19:50)
[2024-10-28 20:11] LABS: GLUCOSE,RANDOM 101 mg/dL (74-106)
[2024-10-28 20:17] LABS: CREATININE 0.67 mg/dL (0.55-1.3)
[2024-10-28 20:27] LABS: CO2 24 mmol/L (21-32)
[2024-10-28] MEDS: ENOXAPARIN NA (PORCINE) 40 MG/0.4 ML DISP.SYRIN SQ SCH (20:40)
[2024-10-28] MEDS: DEXTROSE 5%-WATER 100 ML MINI BAG IVPB ONE (20:43)
[2024-10-28] MEDS: MUPIROCIN 2% TOPICAL OINTMENT FOR DECOLONIZATION NS SCH (21:00)
[2024-10-28] MEDS: CHLORHEXIDINE GLUCONATE 4% CLEANSER FOR DECOLONIZATION TP SCH (21:01)
[2024-10-28 21:55] LABS: EPI CELLS >36 /uL (0-25.1); HYALINE CASTS 9 /uL (0-3.1); URINE APPEARANCE CLOUDY; URINE BACTERIA 878 /uL (0-1359); URINE BILIRUBIN NEGATIVE (NEGATIVE); URINE COLOR YELLOW; URINE GLUCOSE (UA) NEGATIVE (NEGATIVE); URINE KETONE NEGATIVE (NEGATIVE); URINE LEUK ESTERASE 3+ (NEGATIVE); URINE NITRITE NEGATIVE (NEGATIVE); URINE PROTEIN TRACE (NEGATIVE); URINE UROBILINOGEN 0.2 mg/dL (0.2-1.0); URINE WBC 59 /uL (0-25.8)
[2024-10-28 21:58] LABS: GLUCOSE,RANDOM 129 mg/dL (74-106)
[2024-10-28 22:04] LABS: CREATININE 0.61 mg/dL (0.55-1.3)
[2024-10-28 22:09] LABS: CO2 22 mmol/L (21-32)
[2024-10-28] MEDS: KCL 10 MEQ IVPB 10 MEQ/100 ML INFUS.BAG IVPB SCH (22:14)
[2024-10-28] MEDS: ACETAMINOPHEN 325 MG TABLET (FP) PO ONE (22:55)
[2024-10-28 23:21] LABS: URINE RBC 47.2 /uL (0-23.9)
[2024-10-29] MEDS: POTASSIUM CHLORIDE TABS 20 MEQ TABLET.ER (FP) PO ONE (01:15)
[2024-10-29 01:26] LABS: GLUCOSE,RANDOM 100 mg/dL (74-106)
[2024-10-29 01:31] LABS: CREATININE 0.64 mg/dL (0.55-1.3)
[2024-10-29 01:35] LABS: CO2 23 mmol/L (21-32)
[2024-10-29] MEDS: SODIUM CHLORIDE 1,000 ML IV SCH (01:50)
[2024-10-29 04:52] LABS: GLUCOSE,RANDOM 92 mg/dL (74-106)
[2024-10-29 04:54] LABS: CO2 22 mmol/L (21-32)
[2024-10-29 04:58] LABS: CREATININE 0.65 mg/dL (0.55-1.3)
[2024-10-29 07:33] LABS: MCHC 33.5 g/dl (32.2-35.5); MEAN CELL VOLUME 94.3 fl (79.4-94.8); MEAN PLT VOLUME 8.6 fl (9.4-12.3); RDW 15.3 % (12.4-16.4)
[2024-10-29 07:51] LABS: GLUCOSE,RANDOM 83 mg/dL (74-106)
[2024-10-29 07:53] LABS: CO2 21 mmol/L (21-32)
[2024-10-29 07:57] LABS: CREATININE 0.60 mg/dL (0.55-1.3)
[2024-10-29 08:38] LABS: GLUCOSE,RANDOM 83 mg/dL (74-106)
[2024-10-29 08:40] LABS: CO2 21 mmol/L (21-32)
[2024-10-29 08:44] LABS: CREATININE 0.61 mg/dL (0.55-1.3)
[2024-10-29] MEDS: SODIUM CHLORIDE 3% 500 ML/500 ML INFUS.BAG IV SCH (09:23)
[2024-10-29] MEDS: CEFTRIAXONE 1 GM in DEXTROSE 5%-WATER - 50 ML IVPB SCH (10:12)
[2024-10-29] MEDS: MAGNESIUM SULFATE IN WATER 2 GM/50 ML IVPB IVPB ONE (10:13)
[2024-10-29] MEDS: CHOLECALCIFEROL (VIT D3) 1,000 UNIT (25 MCG) TABLET PO SCH (11:09)
[2024-10-29 12:16] LABS: GLUCOSE,RANDOM 96 mg/dL (74-106)
[2024-10-29 12:18] LABS: CO2 23 mmol/L (21-32)
[2024-10-29 12:22] LABS: CREATININE 0.58 mg/dL (0.55-1.3)
[2024-10-29 15:34] LABS: GLUCOSE,RANDOM 97.0 mg/dL (74-106)
[2024-10-29 15:40] LABS: CREATININE 0.54 mg/dL (0.55-1.3)
[2024-10-29 16:17] LABS: CO2 24.0 mmol/L (21-32)
[2024-10-29] MEDS ORDERED: TOLVAPTAN 15 MG TABLET PO SCH (17:00)
[2024-10-29] MEDS ORDERED: PORTA CATH FLUSH 10 ML IVPUSH PRN (17:20)
[2024-10-29] MEDS ORDERED: ALBUTEROL SO4 0.5 % INH SOLN 2.5 MG/0.5 ML VIAL.NEB. NEB PRN (17:22)
[2024-10-29] MEDS: TOLVAPTAN 15 MG TABLET PO ONE (17:26)
[2024-10-29 20:14] LABS: URINE APPEARANCE CLEAR; URINE BILIRUBIN NEGATIVE (NEGATIVE); URINE COLOR YELLOW; URINE GLUCOSE (UA) NEGATIVE (NEGATIVE); URINE KETONE NEGATIVE (NEGATIVE); URINE LEUK ESTERASE NEGATIVE (NEGATIVE); URINE NITRITE NEGATIVE (NEGATIVE); URINE PROTEIN NEGATIVE (NEGATIVE); URINE UROBILINOGEN 0.2 mg/dL (0.2-1.0)
[2024-10-29 20:29] LABS: GLUCOSE,RANDOM 95.0 mg/dL (74-106)
[2024-10-29 20:30] LABS: CO2 24.0 mmol/L (21-32)
[2024-10-29 20:35] LABS: CREATININE 0.6 mg/dL (0.55-1.3)
[2024-10-29] MEDS: guaiFENesin/CODEINE 5 ML UNIT-DOSE CUPS PO PRN (21:13)
[2024-10-30 01:25] LABS: GLUCOSE,RANDOM 84.0 mg/dL (74-106)
[2024-10-30 01:26] LABS: CO2 23.0 mmol/L (21-32)
[2024-10-30 01:30] LABS: CREATININE 0.66 mg/dL (0.55-1.3)
[2024-10-30] MEDS ORDERED: DEXTROSE 5%-WATER - 1,000 ML IV SCH (02:15)
[2024-10-30] MEDS: SODIUM CHLORIDE 3% 500 ML/500 ML INFUS.BAG IV SCH (02:19)
[2024-10-30] MEDS ORDERED: DEXTROSE 50%-WATER 25 GM/50 ML DISP.SYRIN ONE (02:24)
[2024-10-30] MEDS: INSULIN REGULAR HUMAN 100 UNITS/ML *VIAL IVPUSH ONE (02:44)
[2024-10-30] MEDS: DEXTROSE 50%-WATER - 25 GM/50 ML VIAL IVPUSH ONE (02:45)
[2024-10-30] MEDS: SODIUM POLYSTYRENE SULFONATE 15 GM/60 ML BOTTLE PO ONE (02:45)
[2024-10-30 07:00] LABS: MCHC 33.0 g/dl (32.2-35.5); MEAN CELL VOLUME 95.6 fl (79.4-94.8); MEAN PLT VOLUME 8.8 fl (9.4-12.3); RDW 15.7 % (12.4-16.4)
[2024-10-30 07:46] LABS: GLUCOSE,RANDOM 82.0 mg/dL (74-106)
[2024-10-30 07:47] LABS: CO2 26.0 mmol/L (21-32)
[2024-10-30 07:51] LABS: CREATININE 0.63 mg/dL (0.55-1.3)
[2024-10-30] MEDS: DEXTROSE 5%-WATER - 1,000 ML IV SCH (12:29)
[2024-10-30 13:58] LABS: GLUCOSE,RANDOM 137.0 mg/dL (74-106)
[2024-10-30 13:59] LABS: CO2 25.0 mmol/L (21-32)
[2024-10-30 14:03] LABS: CREATININE 0.72 mg/dL (0.55-1.3)
[2024-10-30] MEDS: BENZONATATE 200 MG CAPSULE PO PRN (14:32)
[2024-10-30 18:55] LABS: GLUCOSE,RANDOM 127.0 mg/dL (74-106)
[2024-10-30 18:56] LABS: CO2 24.0 mmol/L (21-32)
[2024-10-30 19:19] LABS: CREATININE 0.58 mg/dL (0.55-1.3)
[2024-10-31 06:53] LABS: MCHC 34.7 g/dl (32.2-35.5); MEAN CELL VOLUME 92.7 fl (79.4-94.8); MEAN PLT VOLUME 8.6 fl (9.4-12.3); RDW 15.4 % (12.4-16.4)
[2024-10-31 07:15] LABS: GLUCOSE,RANDOM 90.0 mg/dL (74-106)
[2024-10-31 07:17] LABS: CO2 25.0 mmol/L (21-32)
[2024-10-31 07:22] LABS: CREATININE 0.57 mg/dL (0.55-1.3)
[2024-10-31 17:02] LABS: GLUCOSE,RANDOM 83.0 mg/dL (74-106)
[2024-10-31 17:03] LABS: CO2 26.0 mmol/L (21-32)
[2024-10-31 17:07] LABS: CREATININE 0.71 mg/dL (0.55-1.3)
[2024-10-31] MEDS ORDERED: LEVALBUTEROL HCL 0.31 MG/3 ML VIAL.NEB IH PRN (18:30)
[2024-10-31] MEDS ORDERED: ACETAMINOPHEN 325 MG TABLET (FP) PO PRN (18:58)
[2024-10-31] MEDS ORDERED: guaiFENesin/CODEINE 5 ML UNIT-DOSE CUPS PO PRN (18:58)
[2024-10-31] MEDS ORDERED: PORTA CATH FLUSH 10 ML IVPUSH PRN (18:58)
[2024-10-31] MEDS ORDERED: BENZONATATE 200 MG CAPSULE PO PRN (18:58)
[2024-10-31] MEDS: DEXTROSE 5%-WATER 250 ML IVPB IVPB ONE (19:47)
[2024-10-31] MEDS ORDERED: MUPIROCIN 2% TOPICAL OINTMENT FOR DECOLONIZATION NS SCH (22:00)
[2024-10-31] MEDS ORDERED: CHLORHEXIDINE GLUCONATE 4% CLEANSER FOR DECOLONIZATION TP SCH (22:00)
[2024-11-01 09:02] VITALS: RESP 18
[2024-11-01] MEDS: CHOLECALCIFEROL (VIT D3) 1,000 UNIT (25 MCG) TABLET PO SCH (09:18)
[2024-11-01] MEDS: ENOXAPARIN NA (PORCINE) 40 MG/0.4 ML DISP.SYRIN SQ SCH (09:18)
[2024-11-01 11:25] LABS: ABSOLUTE IMMATURE GRANULOCYTES 0.01 x10^3/uL (0.0-0.031); BASOPHILS # 0.04 x10^3/uL (0.01-0.08); EOSINOPHIL % 3.8 % (0.7-5.8); EOSINOPHILS # 0.14 x10^3/uL (0.04-0.36); MCHC 33.1 g/dl (32.2-35.5); MEAN CELL VOLUME 96.2 fl (79.4-94.8); MEAN PLT VOLUME 8.7 fl (9.4-12.3); MONOCYTE # 0.58 x10^3/uL (0.24-0.86); MONOCYTE % 15.6 % (4.7-12.5); RDW 15.9 % (12.4-16.4)
[2024-11-01 12:12] LABS: GLUCOSE,RANDOM 74.0 mg/dL (74-106); TOT PROT 7.2 g/dl (6.4-8.2)
[2024-11-01 12:14] LABS: CO2 24.0 mmol/L (21-32)
[2024-11-01 12:15] LABS: ALK PHOS 100.0 U/L (40-150)
[2024-11-01 12:18] LABS: CREATININE 0.71 mg/dL (0.55-1.3); SGOT/AST 22.0 U/L (5-34); SGPT/ALT 14.0 U/L (0-55)
[2024-11-01] MEDS: MAGNESIUM SULF 50% (8.12 MEQ/2 ML-1 GM VIAL) IVPB ONE (12:55)
[2024-11-01 14:02] VITALS: BMI 26.4
[2024-11-01 15:26] VITALS: BP 97/73; PULSE 109; TEMP 98.2
== END 2024-11-01 15:22 | disposition home or self-care (01) | DRG 644 ==
LOC: JER 13:08 → JERBED 15:01 → JICU 17:21 → J5S 10-31 14:12
PROVIDERS: ADMIT Internal Medicine Pulmonary Disease
DX: E22.2 Syndrome of inappropriate secretion of antidiuretic hormone (principal); C34.90 Malignant neoplasm of unspecified part of unspecified bronchus or lung; N39.0 Urinary tract infection, site not specified; I10 Essential (primary) hypertension; E78.5 Hyperlipidemia, unspecified; D72.819 Decreased white blood cell count, unspecified; D64.9 Anemia, unspecified; J44.9 Chronic obstructive pulmonary disease, unspecified; F17.200 Nicotine dependence, unspecified, uncomplicated
CPT/HCPCS: 36415; 71045-TC-FY; 80048; 80053; 81003; 82436; 82570; 82962; 83735; 83930; 83935; 84100; 84133; 84300; 85025; 93005; 93010; 94640; 97116-GP; 97161-GP; 99285-25; J2597; J2997

== ENCOUNTER 2024-11-07 10:03 | Day surgery (SDC) | payer OTHER ==
[2024-11-07 09:23] LABS: ABSOLUTE IMMATURE GRANULOCYTES 0.02 x10^3/uL (0.0-0.031); BASOPHILS # 0.03 x10^3/uL (0.01-0.08); EOSINOPHIL % 2.7 % (0.7-5.8); EOSINOPHILS # 0.14 x10^3/uL (0.04-0.36); MCHC 32.9 g/dl (32.2-35.5); MEAN CELL VOLUME 96.4 fl (79.4-94.8); MEAN PLT VOLUME 8.7 fl (9.4-12.3); MONOCYTE # 0.57 x10^3/uL (0.24-0.86); MONOCYTE % 10.8 % (4.7-12.5); RDW 15.8 % (12.4-16.4)
[2024-11-07 09:51] LABS: GLUCOSE,RANDOM 95 mg/dL (74-106)
[2024-11-07 09:52] LABS: TOT PROT 6.8 g/dl (6.4-8.2)
[2024-11-07 09:53] LABS: CO2 26 mmol/L (21-32)
[2024-11-07 09:57] LABS: CREATININE 0.74 mg/dL (0.55-1.3); SGOT/AST 20 U/L (5-34); SGPT/ALT 15 U/L (0-55)
[2024-11-07 10:05] LABS: ALK PHOS 113 U/L (40-150)
[2024-11-07] MEDS: SODIUM CHLORIDE 250 ML IV ONE (10:30)
[2024-11-07] MEDS: DEXAMETHASONE SODIUM PHOSPHATE 10 MG in SODIUM CHLORIDE 50 ML IVPB ONE (10:31)
[2024-11-07] MEDS: PALONOSETRON HCL 0.25 MG/5 ML VIAL IVPUSH ONE (11:15)
[2024-11-07] MEDS: SODIUM CHLORIDE IV ONE (11:16)
[2024-11-07] MEDS: LURBINECTEDIN IV ONE (11:16)
[2024-11-07 11:27] VITALS: RESP 20; TEMP 98.9
[2024-11-07] MEDS: PORTA CATH FLUSH 10 ML IVPUSH PRN (12:42)
[2024-11-07 12:44] VITALS: BP 120/70; PULSE 107
[2024-11-07] MEDS: ACETAMINOPHEN 325 MG TABLET (FP) PO ONE (12:51)
== END 2024-11-07 13:05 | disposition home or self-care (01) ==
LOC: JONCCHEMO 10:03 → J7W 10:06 → JONCCHEMO 13:05
PROVIDERS: ATTEND Internal Medicine Hematology & Oncology
DX: Z51.11 Encounter for antineoplastic chemotherapy (principal); C34.2 Malignant neoplasm of middle lobe, bronchus or lung
CPT/HCPCS: 36415; 80048; 80076; 85025; J9223